=== PATIENT | male | born 1945 | race African-American/Black ===

== ENCOUNTER 2016-06-26 09:18 | Outpatient (CLI) | payer MEDICARE ==
[2016-06-26 09:48] LABS: INR-International Normal Ratio 2.8
== END 2016-06-26 09:19 | disposition home or self-care (01) ==
LOC: MADLAB 09:18
PROVIDERS: ATTEND Family Medicine
DX: Z51.81 Encounter for therapeutic drug level monitoring (principal); I48.2 Chronic atrial fibrillation; Z79.01 Long term (current) use of anticoagulants
CPT/HCPCS: 36415; 85610

== ENCOUNTER 2016-07-31 10:11 | Outpatient (CLI) | payer MEDICARE ==
[2016-07-31 10:45] LABS: INR-International Normal Ratio 2.2; Prothrombin Time 24.5 SEC (12.0-14.7)
== END 2016-07-31 10:12 | disposition home or self-care (01) ==
LOC: MADLABBHPM 10:11
PROVIDERS: ATTEND Family Medicine
DX: Z51.81 Encounter for therapeutic drug level monitoring (principal); Z79.01 Long term (current) use of anticoagulants
CPT/HCPCS: 36415; 85610

== ENCOUNTER 2016-08-29 09:41 | Outpatient (CLI) | payer MEDICARE ==
[2016-08-29 10:19] LABS: INR-International Normal Ratio 2.1; Prothrombin Time 23.7 SEC (12.0-14.7)
== END 2016-08-29 09:42 | disposition home or self-care (01) ==
LOC: MADLAB 09:41
PROVIDERS: ATTEND Family Medicine
DX: Z51.81 Encounter for therapeutic drug level monitoring (principal); Z79.01 Long term (current) use of anticoagulants
CPT/HCPCS: 36415; 85610

== ENCOUNTER 2016-09-26 10:55 | Outpatient (CLI) | payer MEDICARE ==
[2016-09-26 11:21] LABS: INR-International Normal Ratio 2.5; Prothrombin Time 26.5 SEC (12.0-14.7)
== END 2016-09-26 10:56 | disposition home or self-care (01) ==
LOC: MADLABBHPM 10:55
PROVIDERS: ATTEND Family Medicine
DX: Z51.81 Encounter for therapeutic drug level monitoring (principal); Z79.01 Long term (current) use of anticoagulants
CPT/HCPCS: 36415; 85610

== ENCOUNTER 2016-10-30 08:17 | Outpatient (CLI) | payer MEDICARE ==
[2016-10-30 09:13] LABS: INR-International Normal Ratio 2.6; Prothrombin Time 27.5 SEC (12.0-14.7)
== END 2016-10-30 08:18 | disposition home or self-care (01) ==
LOC: MADLABBHPM 08:17
PROVIDERS: ATTEND Family Medicine
DX: Z51.81 Encounter for therapeutic drug level monitoring (principal); Z79.01 Long term (current) use of anticoagulants
CPT/HCPCS: 36415; 85610

== ENCOUNTER 2016-11-23 09:30 | Outpatient (CLI) | payer MEDICARE ==
[2016-11-23 09:56] LABS: INR-International Normal Ratio 1.9; Prothrombin Time 21.4 SEC (12.0-14.7)
== END 2016-11-23 09:31 | disposition home or self-care (01) ==
LOC: MADLABBHPM 09:30
PROVIDERS: ATTEND Family Medicine
DX: Z51.81 Encounter for therapeutic drug level monitoring (principal); Z79.01 Long term (current) use of anticoagulants
CPT/HCPCS: 36415; 85610

== ENCOUNTER 2017-01-17 13:29 | Emergency (ER) | payer MEDICARE ==
[2017-01-17] MEDS ORDERED: HYDROcodone/Acetaminophen 10/325 mg Tablet ONE (13:50)
[2017-01-17] MEDS ORDERED: Cyclobenzaprine 10 MG TAB ONE (13:51)
== END 2017-01-17 13:55 | disposition home or self-care (01) ==
LOC: MADERS 13:29
DX: M62.830 Muscle spasm of back (principal)
CPT/HCPCS: 99283

== ENCOUNTER 2017-01-18 11:35 | Outpatient (CLI) | payer MEDICARE, MEDICAID ==
[2017-01-18 12:30] LABS: Digoxin 0.23 ng/mL (0.8-2.0)
[2017-01-18 12:57] LABS: Prothrombin Time 22.9 SEC (12.0-14.7)
== END 2017-01-18 11:36 | disposition home or self-care (01) ==
LOC: MADLABBHPM 11:35
PROVIDERS: ATTEND Family Medicine
DX: D64.9 Anemia, unspecified (principal); I48.2 Chronic atrial fibrillation; Z79.01 Long term (current) use of anticoagulants
CPT/HCPCS: 36415; 80162; 82728; 83540; 85610

== ENCOUNTER 2017-01-29 09:44 | Outpatient (CLI) | payer MEDICARE, MEDICAID ==
[2017-01-29 10:54] LABS: INR-International Normal Ratio 1.9; Prothrombin Time 22.3 SEC (12.0-14.7)
[2017-01-29 11:03] LABS: #Basophils 0.1 thou/uL (0.0-0.2); #Eosinphils 0.1 thou/uL (0.0-0.7); #Lymphocytes 2.1 thou/uL (1.20-3.40); #Monocytes 0.5 thou/uL (0.11-0.59); %Basophils 1.4 % (0.0-1.0); %Eosinophils 1.7 % (0.0-10.0); %Lymphocytes 27.2 % (21.0-51.0); %Monocytes 6.7 % (0.0-10.0); Mean Corpuscular HGB CONC 32.2 g/dL (32.0-36.0); Mean Corpuscular Hemoglobin 29.2 pg (27.0-31.0); Mean Corpuscular Volume 90.6 fl (80.0-94.0); Mean Platelet Volume 6.4 fL (7.4-10.4); Platelet Count 321 thou/uL (130-400); RBC Distribution Width 11.7 % (11.5-14.5); Red Blood Cell (RBC) Count 3.78 mill/uL (4.70-6.10); White Blood Cell (WBC) Count 7.9 thou/uL (4.8-10.8)
[2017-01-29 11:08] LABS: ALT (SGPT) 11 U/L (8-55); AST (SGOT) 14 U/L (5-34); Albumin 3.6 g/dL (3.4-4.8); Alkaline Phosphatase 62 U/L (40-150); Anion Gap 12 mmol/L (10-20); BUN (Urea Nitrogen) 16 mg/dL (8.4-25.7); Bilirubin, Total 0.4 mg/dL (0.2-1.2); Calc. Creatinine Clearance 0 mL/min (70-130); Calcium 9.4 mg/dL (7.8-10.44); Carbon Dioxide 29 mmol/L (23-31); Chloride 102 mmol/L (98-107); Estimated GFR-MDRD 90; Globulin 3.5 g/dL (2.4-3.5); Glucose 82 mg/dL (83-110); Potassium 3.6 mmol/L (3.5-5.1); Protein, Total 7.1 g/dL (5.8-8.1); Sodium 139 mmol/L (136-145); Uric Acid 4.2 mg/dL (3.5-7.2)
[2017-01-29 16:57] LABS: Iron 67 ug/dL (65-175)
== END 2017-01-29 09:45 ==
LOC: MADLABBHPM 09:44
PROVIDERS: ATTEND Family Medicine
DX: D50.9 Iron deficiency anemia, unspecified (principal); M10.9 Gout, unspecified
CPT/HCPCS: 36415; 80053; 82728; 83540; 84550; 85025; 85610

== ENCOUNTER 2017-01-30 10:37 | Outpatient (CLI) | payer MEDICARE, MEDICAID ==
[2017-01-30 12:33] LABS: PSA-Asymptomatic (SCREENING) 0.64 ng/mL (0-4.0)
[2017-01-30 17:17] LABS: HBSAB Concentration 0.65 mIU/mL; Hep B Core Total Ab Non-Reactive (NonReactive); Hep B Core Total Index 0.09 S/CO (0-0.79); Hep B Surf AB Non-Reactive (NonReactive); Hep B Surf Ag Non-Reactive S/CO (NonReactive)
== END 2017-01-30 10:38 | disposition home or self-care (01) ==
LOC: MADLABBHPM 10:37
PROVIDERS: ATTEND Family Medicine
DX: Z00.01 Encounter for general adult medical examination with abnormal findings (principal)
CPT/HCPCS: 36415; 86704; 86706; 87340; G0103

== ENCOUNTER 2017-01-31 09:32 | Outpatient (CLI) | payer MEDICARE, MEDICAID ==
--- NOTE | 2017-01-31 12:18 | ULT ---
ABDOMINAL AORTIC ULTRASOUND: History: Possible aortic aneurysm. FINDINGS: Large body habitus limits exam. Bowel gas also limits the study. The proximal aorta is identified and has a diameter measured at approximately 2.0 cm. The mid abdomi nal aorta is identified with diameter measured at 2.0 cm. The inferior aorta diameter measured at 1. 7 cm. IMPRESSION: Unremarkable abdominal aortic ultrasound. No evidence of aortic aneurysm. POS: [facility]
== END 2017-01-31 09:33 | disposition home or self-care (01) ==
LOC: MADULT 09:32
PROVIDERS: ATTEND Family Medicine
DX: Z00.01 Encounter for general adult medical examination with abnormal findings (principal); Z79.01 Long term (current) use of anticoagulants
CPT/HCPCS: 76775

== ENCOUNTER 2017-05-02 11:35 | Outpatient (CLI) | payer MEDICARE, MEDICAID ==
[2017-05-02 12:30] LABS: INR-International Normal Ratio 2.1; Prothrombin Time 23.9 SEC (12.0-14.7)
== END 2017-05-02 11:36 | disposition home or self-care (01) ==
LOC: MADLABBHPM 11:35
PROVIDERS: ATTEND Family Medicine
DX: Z51.81 Encounter for therapeutic drug level monitoring (principal); Z79.01 Long term (current) use of anticoagulants
CPT/HCPCS: 36415; 85610

== ENCOUNTER 2017-05-22 10:38 | Outpatient (CLI) | payer MEDICARE, MEDICAID ==
--- NOTE | 2017-05-22 14:32 | RAD ---
TWO VIEWS LEFT HIP: History: Chronic pain. Comparison: None. FINDINGS: Mild loss of joint space height. Contour of the femoral head is maintained. No fracture. IMPRESSION: Mild loss of joint space height. No fracture. POS: [facility]
--- NOTE | 2017-05-22 14:33 | RAD ---
AP PELVIS: Date: 05-22-17 History: Chronic left hip pain. FINDINGS: No fracture or dislocation is seen. 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 The hips are overa ll symmetric in appearance bilaterally. No lytic or sclerotic osseous lesions are seen. IMPRESSION: No acute osseous abnormality. POS: [facility]
== END 2017-05-22 10:39 | disposition home or self-care (01) ==
LOC: MADRAD 10:38
PROVIDERS: ATTEND Family Medicine
DX: M25.552 Pain in left hip (principal); Z79.01 Long term (current) use of anticoagulants
CPT/HCPCS: 72170

== ENCOUNTER 2017-05-25 12:07 | Emergency (ER) | payer MEDICARE, MEDICAID ==
[2017-05-25 13:00] LABS: #Basophils 0.1 thou/uL (0.0-0.2); #Eosinphils 0.1 thou/uL (0.0-0.7); #Monocytes 0.6 thou/uL (0.11-0.59); #Neutrophils 5.9 thou/uL (1.40-6.50); %Basophils 1.2 % (0.0-1.0); %Eosinophils 0.9 % (0.0-10.0); %Lymphocytes 22.7 % (21.0-51.0); %Monocytes 6.4 % (0.0-10.0); %Neutrophils 68.7 % (42.0-75.0); Hemoglobin 11.3 g/dL (14.0-18.0); Mean Corpuscular HGB CONC 33.7 g/dL (32.0-36.0); Mean Corpuscular Hemoglobin 30.3 pg (27.0-31.0); Mean Platelet Volume 6.3 fL (7.4-10.4); Platelet Count 336 thou/uL (130-400); RBC Distribution Width 11.4 % (11.5-14.5); Red Blood Cell (RBC) Count 3.72 mill/uL (4.70-6.10); White Blood Cell (WBC) Count 8.6 thou/uL (4.8-10.8)
[2017-05-25 13:04] LABS: INR-International Normal Ratio 2.7; Prothrombin Time 29.7 SEC (12.0-14.7)
[2017-05-25 13:05] LABS: PTT 62.8 SEC (22.9-36.1)
[2017-05-25 13:18] LABS: Anion Gap 15 mmol/L (10-20); BUN (Urea Nitrogen) 20 mg/dL (8.4-25.7); Calc. Creatinine Clearance 0 mL/min (70-130); Calcium 9.1 mg/dL (7.8-10.44); Carbon Dioxide 26 mmol/L (23-31); Chloride 101 mmol/L (98-107); Estimated GFR-MDRD 90; Glucose 90 mg/dL (83-110); Sodium 138 mmol/L (136-145)
[2017-05-25 13:24] LABS: CKMB 4.9 ng/mL (0-6.6); Troponin I 0.117 ng/mL (< 0.028)
[2017-05-25 13:26] LABS: Digoxin 0.46 ng/mL (0.8-2.0)
--- NOTE | 2017-05-25 14:32 | RAD ---
CHEST 1 VIEW: HISTORY: Chest pain. COMPARISON: Chest 1 view 06/29/13. FINDINGS: Lungs are severely hypoinflated. Central position of the bowel to the left hemidiaphragm and the spl een. No pneumothorax. IMPRESSION: Severe lung hypoinflation. No focal airspace consolidation, though a followup 2 views of the chest m ay be beneficial in this patient. No significant change from 2014. POS: [facility]
== END 2017-05-25 13:55 | disposition home or self-care (01) ==
LOC: MADERS 12:07
DX: R00.1 Bradycardia, unspecified (principal); R60.0 Localized edema; I25.2 Old myocardial infarction; I48.91 Unspecified atrial fibrillation; E03.9 Hypothyroidism, unspecified; I10 Essential (primary) hypertension; Z79.01 Long term (current) use of anticoagulants; Z79.899 Other long term (current) drug therapy
CPT/HCPCS: 71010; 80048; 80162; 82553; 83880; 84484; 85025; 85610; 85730; 93005

== ENCOUNTER 2017-05-29 09:00 | Outpatient (CLI) | payer MEDICARE, MEDICAID ==
[2017-05-29 09:37] LABS: INR-International Normal Ratio 1.8; Prothrombin Time 21.7 SEC (12.0-14.7)
[2017-05-29 09:47] LABS: ALT (SGPT) Less than 6 U/L (8-55); AST (SGOT) 13 U/L (5-34); Albumin 3.7 g/dL (3.4-4.8); Alkaline Phosphatase 75 U/L (40-150); Anion Gap 15 mmol/L (10-20); BUN (Urea Nitrogen) 16 mg/dL (8.4-25.7); Bilirubin, Total 0.6 mg/dL (0.2-1.2); Calc. Creatinine Clearance 0 mL/min (70-130); Calcium 9.6 mg/dL (7.8-10.44); Carbon Dioxide 29 mmol/L (23-31); Chloride 101 mmol/L (98-107); Estimated GFR-MDRD 73; Globulin 3.6 g/dL (2.4-3.5); Glucose 92 mg/dL (83-110); Potassium 3.6 mmol/L (3.5-5.1); Protein, Total 7.3 g/dL (5.8-8.1); Sodium 141 mmol/L (136-145)
== END 2017-05-29 09:01 | disposition home or self-care (01) ==
LOC: MADLAB 09:00
PROVIDERS: ATTEND Internal Medicine Cardiovascular Disease
DX: I10 Essential (primary) hypertension (principal); Z79.01 Long term (current) use of anticoagulants
CPT/HCPCS: 36415; 80053; 85610

== ENCOUNTER 2017-07-02 07:53 | Outpatient (CLI) | payer MEDICARE, MEDICAID ==
[2017-07-02 08:42] LABS: INR-International Normal Ratio 2.4; Prothrombin Time 27.2 SEC (12.0-14.7)
== END 2017-07-02 07:54 | disposition home or self-care (01) ==
LOC: MADLABBHPM 07:53
PROVIDERS: ATTEND Family Medicine
DX: Z51.81 Encounter for therapeutic drug level monitoring (principal); Z79.01 Long term (current) use of anticoagulants
CPT/HCPCS: 36415; 85610

== ENCOUNTER 2017-07-31 09:48 | Outpatient (CLI) | payer MEDICARE ==
[2017-07-31 10:32] LABS: #Basophils 0.1 thou/uL (0.0-0.2); #Eosinphils 0.1 thou/uL (0.0-0.7); #Lymphocytes 2.4 thou/uL (1.20-3.40); #Monocytes 0.6 thou/uL (0.11-0.59); %Basophils 1.7 % (0.0-1.0); %Eosinophils 1.4 % (0.0-10.0); %Lymphocytes 29.1 % (21.0-51.0); %Neutrophils 60.8 % (42.0-75.0); Hemoglobin 11.1 g/dL (14.0-18.0); Mean Corpuscular HGB CONC 31.6 g/dL (32.0-36.0); Mean Corpuscular Hemoglobin 29.1 pg (27.0-31.0); Mean Platelet Volume 6.3 fL (7.4-10.4); Platelet Count 299 thou/uL (130-400); RBC Distribution Width 12.1 % (11.5-14.5); Red Blood Cell (RBC) Count 3.82 mill/uL (4.70-6.10); White Blood Cell (WBC) Count 8.3 thou/uL (4.8-10.8)
[2017-07-31 10:48] LABS: INR-International Normal Ratio 2.6; Prothrombin Time 28.6 SEC (12.0-14.7)
[2017-07-31 10:58] LABS: ALT (SGPT) 8 U/L (8-55); AST (SGOT) 13 U/L (5-34); Albumin 3.5 g/dL (3.4-4.8); Alkaline Phosphatase 61 U/L (40-150); Anion Gap 12 mmol/L (10-20); BUN (Urea Nitrogen) 15 mg/dL (8.4-25.7); Bilirubin, Total 0.5 mg/dL (0.2-1.2); Calc. Creatinine Clearance 0 mL/min (70-130); Calcium 9.1 mg/dL (7.8-10.44); Carbon Dioxide 29 mmol/L (23-31); Cardiac Risk 3.2 (Less than 4.5); Chloride 104 mmol/L (98-107); Cholesterol 142 mg/dl (< 200 Desired); Estimated GFR-MDRD Greater than 90; Globulin 3.2 g/dL (2.4-3.5); Glucose 88 mg/dL (83-110); HDL Cholesterol 45 mg/dL (>60 Neg Risk); LDL Cholesterol, Calculated 86 mg/dL; Potassium 3.7 mmol/L (3.5-5.1); Protein, Total 6.7 g/dL (5.8-8.1); Sodium 141 mmol/L (136-145); Triglycerides 53 mg/dL (Less than 150); Uric Acid 4.2 mg/dL (3.5-7.2)
[2017-07-31 17:10] LABS: Iron 70 ug/dL (65-175)
[2017-07-31 17:14] LABS: Ferritin 93.42 ng/mL (22-322)
== END 2017-07-31 09:49 | disposition home or self-care (01) ==
LOC: MADLABBHPM 09:48
PROVIDERS: ATTEND Family Medicine
DX: E03.9 Hypothyroidism, unspecified (principal); E78.5 Hyperlipidemia, unspecified; D50.9 Iron deficiency anemia, unspecified; M10.9 Gout, unspecified
CPT/HCPCS: 36415; 80053; 80061; 82728; 83036; 83540; 84443; 84550; 85025; 85610

== ENCOUNTER 2017-08-28 09:36 | Outpatient (CLI) | payer MEDICARE ==
[2017-08-28 10:47] LABS: Prothrombin Time 23.7 SEC (12.0-14.7)
== END 2017-08-28 09:37 | disposition home or self-care (01) ==
LOC: MADLABBHPM 09:36
PROVIDERS: ATTEND Family Medicine
DX: Z51.81 Encounter for therapeutic drug level monitoring (principal); Z79.01 Long term (current) use of anticoagulants
CPT/HCPCS: 36415; 85610

== ENCOUNTER 2017-09-29 10:33 | Emergency (ER) | payer MEDICARE, MEDICAID ==
[2017-09-29] MEDS ORDERED: Diazepam 5 MG TAB ONE (10:56)
[2017-09-29] MEDS ORDERED: HYDROcodone/Acetaminophen 10/325 mg Tablet ONE (10:56)
--- NOTE | 2017-09-29 12:31 | RAD ---
LUMBAR SPINE 3 VIEWS: Date: 09/29/17 HISTORY: Back pain. FINDINGS: There are five lumbar-type vertebrae. Pedicles are intact. There is mild depression of the central as pect of the L2 superior end plate. Other vertebral body heights are maintained. Moderate osteophytosi s throughout the vertebral bodies and facets. Disc space narrowing at the L3-4 level. Minimal degener ative spondylolisthesis at the L3-4 and L4-5 levels. IMPRESSION: 1. Mild L2 superior end place compression, age-indeterminate. 2. Lumbar spondylosis. POS: [facility]
== END 2017-09-29 11:40 | disposition home or self-care (01) ==
LOC: MADERS 10:33
DX: M54.5 Low back pain (principal); I10 Essential (primary) hypertension; I48.91 Unspecified atrial fibrillation; E03.9 Hypothyroidism, unspecified; Z79.01 Long term (current) use of anticoagulants; Z79.891 Long term (current) use of opiate analgesic; Z79.899 Other long term (current) drug therapy; X50.1XXA Overexertion from prolonged static or awkward postures, initial encounter
CPT/HCPCS: 72100

== ENCOUNTER 2017-10-05 08:37 | Outpatient (CLI) | payer MEDICARE ==
[2017-10-05 09:01] LABS: INR-International Normal Ratio 2.6; Prothrombin Time 29.1 SEC (12.0-14.7)
== END 2017-10-05 08:38 | disposition home or self-care (01) ==
LOC: MADLABBHPM 08:37
PROVIDERS: ATTEND Family Medicine
DX: Z51.81 Encounter for therapeutic drug level monitoring (principal); Z79.01 Long term (current) use of anticoagulants
CPT/HCPCS: 36415; 85610

== ENCOUNTER 2017-10-30 09:35 | Outpatient (CLI) | payer MEDICARE ==
[2017-10-30 10:57] LABS: INR-International Normal Ratio 2.7
== END 2017-10-30 09:36 | disposition home or self-care (01) ==
LOC: MADLABBHPM 09:35
PROVIDERS: ATTEND Family Medicine
DX: Z51.81 Encounter for therapeutic drug level monitoring (principal); Z79.01 Long term (current) use of anticoagulants
CPT/HCPCS: 36415; 85610

== ENCOUNTER 2017-11-28 07:35 | Outpatient (CLI) | payer MEDICARE, MEDICAID ==
[2017-11-28 08:01] LABS: INR-International Normal Ratio 2.3; Prothrombin Time 26.4 SEC (12.0-14.7)
== END 2017-11-28 07:36 | disposition home or self-care (01) ==
LOC: MADLABBHPM 07:35
PROVIDERS: ATTEND Family Medicine
DX: Z51.81 Encounter for therapeutic drug level monitoring (principal); Z79.01 Long term (current) use of anticoagulants
CPT/HCPCS: 36415; 85610

== ENCOUNTER 2017-12-24 09:30 | Outpatient (CLI) | payer MEDICARE, MEDICAID ==
[2017-12-24 09:55] LABS: INR-International Normal Ratio 2.3; Prothrombin Time 25.7 SEC (12.0-14.7)
== END 2017-12-24 09:31 | disposition home or self-care (01) ==
LOC: MADLAB 09:30
PROVIDERS: ATTEND Family Medicine
DX: Z51.81 Encounter for therapeutic drug level monitoring (principal); Z79.01 Long term (current) use of anticoagulants
CPT/HCPCS: 36415; 85610

== ENCOUNTER 2018-01-02 12:34 | Outpatient (CLI) | payer MEDICARE, MEDICAID ==
[2018-01-02 12:57] LABS: INR-International Normal Ratio 2.6; Prothrombin Time 28.2 SEC (12.0-14.7)
== END 2018-01-02 12:35 | disposition home or self-care (01) ==
LOC: MADLAB 12:34
PROVIDERS: ATTEND Family Medicine
DX: Z51.81 Encounter for therapeutic drug level monitoring (principal); Z79.01 Long term (current) use of anticoagulants
CPT/HCPCS: 36415; 85610

== ENCOUNTER 2018-03-14 09:21 | Outpatient (CLI) | payer MEDICARE, MEDICAID ==
[2018-03-14 11:48] LABS: INR-International Normal Ratio 1.8; Prothrombin Time 20.9 SEC (12.0-14.7)
== END 2018-03-14 09:22 | disposition home or self-care (01) ==
LOC: MADLABBHPM 09:21
PROVIDERS: ATTEND Family Medicine
DX: Z51.81 Encounter for therapeutic drug level monitoring (principal); Z79.01 Long term (current) use of anticoagulants
CPT/HCPCS: 36415; 85610

== ENCOUNTER 2018-04-05 09:45 | Outpatient (CLI) | payer MEDICARE, MEDICAID ==
[2018-04-06 17:01] LABS: Prothrombin Time 22.6 SEC (12.0-14.7)
== END 2018-04-05 09:46 | disposition home or self-care (01) ==
LOC: MADLAB 09:45
PROVIDERS: ATTEND Family Medicine
DX: Z51.81 Encounter for therapeutic drug level monitoring (principal); Z79.01 Long term (current) use of anticoagulants
CPT/HCPCS: 36415; 85610

== ENCOUNTER 2018-05-08 08:23 | Outpatient (CLI) | payer MEDICARE, MEDICAID ==
[2018-05-08 09:57] LABS: Prothrombin Time 22.8 SEC (12.0-14.7)
== END 2018-05-08 08:24 | disposition home or self-care (01) ==
LOC: MADLABBHPM 08:23
PROVIDERS: ATTEND Family Medicine
DX: Z51.81 Encounter for therapeutic drug level monitoring (principal); Z79.01 Long term (current) use of anticoagulants
CPT/HCPCS: 36415; 85610

== ENCOUNTER 2018-06-13 09:43 | Outpatient (CLI) | payer MEDICARE, MEDICAID ==
[2018-06-13 10:20] LABS: INR-International Normal Ratio 1.4; Prothrombin Time 16.8 SEC (12.0-14.7)
== END 2018-06-13 09:44 | disposition home or self-care (01) ==
LOC: MADLABBHPM 09:43
PROVIDERS: ATTEND Family Medicine
DX: Z51.81 Encounter for therapeutic drug level monitoring (principal); Z79.01 Long term (current) use of anticoagulants
CPT/HCPCS: 36415; 85610

== ENCOUNTER 2018-06-20 08:55 | Outpatient (CLI) | payer MEDICARE, MEDICAID ==
[2018-06-20 09:48] LABS: INR-International Normal Ratio 1.8; Prothrombin Time 20.8 SEC (12.0-14.7)
== END 2018-06-20 08:56 | disposition home or self-care (01) ==
LOC: MADLABBHPM 08:55
PROVIDERS: ATTEND Family Medicine
DX: Z51.81 Encounter for therapeutic drug level monitoring (principal); Z79.01 Long term (current) use of anticoagulants
CPT/HCPCS: 36415; 85610

== ENCOUNTER 2018-07-15 10:08 | Outpatient (CLI) | payer MEDICARE, MEDICAID ==
[2018-07-15 11:02] LABS: INR-International Normal Ratio 2.1; Prothrombin Time 23.2 SEC (12.0-14.7)
== END 2018-07-15 10:09 | disposition home or self-care (01) ==
LOC: MADLABBHPM 10:08
PROVIDERS: ATTEND Family Medicine
DX: Z51.81 Encounter for therapeutic drug level monitoring (principal); Z79.01 Long term (current) use of anticoagulants
CPT/HCPCS: 36415; 85610

== ENCOUNTER 2018-07-29 09:48 | Outpatient (CLI) | payer MEDICARE, MEDICAID ==
[2018-07-29 10:53] LABS: Prothrombin Time 22.9 SEC (12.0-14.7)
[2018-07-29 11:06] LABS: ALT (SGPT) 10 U/L (8-55); AST (SGOT) 13 U/L (5-34); Albumin 3.8 g/dL (3.4-4.8); Alkaline Phosphatase 78 U/L (40-150); Anion Gap 12 mmol/L (10-20); BUN (Urea Nitrogen) 14 mg/dL (8.4-25.7); Bilirubin, Total 0.5 mg/dL (0.2-1.2); Calc. Creatinine Clearance 0 mL/min (70-130); Calcium 9.5 mg/dL (7.8-10.44); Carbon Dioxide 29 mmol/L (23-31); Chloride 104 mmol/L (98-107); Estimated GFR-MDRD 77; Globulin 3.2 g/dL (2.4-3.5); Glucose 81 mg/dL (83-110); Potassium 3.8 mmol/L (3.5-5.1); Sodium 141 mmol/L (136-145); Uric Acid 5.7 mg/dL (3.5-7.2)
[2018-07-29 11:09] LABS: #Basophils 0.1 thou/uL (0.0-0.2); #Eosinphils 0.2 thou/uL (0.0-0.7); #Lymphocytes 1.8 thou/uL (1.20-3.40); #Monocytes 0.4 thou/uL (0.11-0.59); #Neutrophils 4.7 thou/uL (1.40-6.50); %Basophils 1.6 % (0.0-1.0); %Eosinophils 2.2 % (0.0-10.0); %Lymphocytes 25.4 % (21.0-51.0); %Monocytes 6.1 % (0.0-10.0); %Neutrophils 64.7 % (42.0-75.0); Hemoglobin 11.7 g/dL (14.0-18.0); Mean Corpuscular HGB CONC 31.9 g/dL (32.0-36.0); Mean Corpuscular Hemoglobin 28.6 pg (27.0-31.0); Mean Corpuscular Volume 89.6 fL (78.0-98.0); Mean Platelet Volume 6.7 fL (7.4-10.4); Platelet Count 264 thou/uL (130-400); White Blood Cell (WBC) Count 7.2 thou/uL (4.8-10.8)
[2018-07-29 17:13] LABS: Iron 78 ug/dL (65-175)
== END 2018-07-29 09:49 ==
LOC: MADLABBHPM 09:48
PROVIDERS: ATTEND Family Medicine
DX: D50.9 Iron deficiency anemia, unspecified (principal); M10.9 Gout, unspecified; I10 Essential (primary) hypertension
CPT/HCPCS: 36415; 80053; 82728; 83540; 84550; 85025; 85610

== ENCOUNTER 2018-08-12 13:53 | Emergency (ER) | payer MEDICARE, MEDICAID ==
[2018-08-12 14:34] LABS: #Basophils 0.1 thou/uL (0.0-0.2); #Eosinphils 0.7 thou/uL (0.0-0.7); #Lymphocytes 2.3 thou/uL (1.20-3.40); #Monocytes 0.6 thou/uL (0.11-0.59); #Neutrophils 5.2 thou/uL (1.40-6.50); %Basophils 1.1 % (0.0-1.0); %Monocytes 6.2 % (0.0-10.0); %Neutrophils 58.7 % (42.0-75.0); Mean Corpuscular HGB CONC 31.4 g/dL (32.0-36.0); Mean Corpuscular Hemoglobin 28.3 pg (27.0-31.0); Mean Corpuscular Volume 90.2 fL (78.0-98.0); Mean Platelet Volume 6.1 fL (7.4-10.4); Platelet Count 276 thou/uL (130-400); RBC Distribution Width 11.9 % (11.5-14.5); Red Blood Cell (RBC) Count 4.24 mill/uL (4.70-6.10); White Blood Cell (WBC) Count 8.9 thou/uL (4.8-10.8)
[2018-08-12 14:44] LABS: INR-International Normal Ratio 2.5; PTT 39.9 SEC (22.9-36.1); Prothrombin Time 27.4 SEC (12.0-14.7)
[2018-08-12 14:52] LABS: ALT (SGPT) 7 U/L (8-55); AST (SGOT) 11 U/L (5-34); Albumin 3.7 g/dL (3.4-4.8); Alkaline Phosphatase 78 U/L (40-150); Anion Gap 15 mmol/L (10-20); BUN (Urea Nitrogen) 14 mg/dL (8.4-25.7); Bilirubin, Total 0.4 mg/dL (0.2-1.2); Calc. Creatinine Clearance 0 mL/min (70-130); Calcium 9.4 mg/dL (7.8-10.44); Carbon Dioxide 26 mmol/L (23-31); Chloride 102 mmol/L (98-107); Estimated GFR-MDRD 82; Globulin 3.2 g/dL (2.4-3.5); Glucose 138 mg/dL (83-110); Potassium 3.6 mmol/L (3.5-5.1); Protein, Total 6.9 g/dL (5.8-8.1); Sodium 139 mmol/L (136-145)
[2018-08-12 14:55] LABS: Bilirubin Negative (Negative); Blood, Urine Negative (Negative); Clarity Clear (Clear); Glucose, Urine (Dipstick) Negative (Negative); Leukocyte Negative (Negative); Nitrite Negative (Negative); Protein, Urine (Dipstick) Negative (Neg-Trace); Urobilinogen 0.2 mg/dL (0.2-1.0); pH, Urine 5.5 (5.0-9.0)
--- NOTE | 2018-08-12 15:04 | RAD ---
CHEST PA AND LATERAL 2 VIEWS: HISTORY: Altered mental status. COMPARISON: 05/25/2017. FINDINGS: Poor inspiration. Minimal increased markings in the bases. No confluent pneumonia, overt edema, or pleural effusion. IMPRESSION: No acute intrathoracic disease. Stable from prior study. POS: [facility]
== END 2018-08-12 16:15 | disposition home or self-care (01) ==
LOC: MADERS 13:53
DX: R42 Dizziness and giddiness (principal); I25.2 Old myocardial infarction; I48.91 Unspecified atrial fibrillation; E03.9 Hypothyroidism, unspecified; I10 Essential (primary) hypertension; Z79.899 Other long term (current) drug therapy; Z79.01 Long term (current) use of anticoagulants
CPT/HCPCS: 71046; 80053; 81003; 83605; 84443; 84484; 85025; 85610; 85730; 93005; 94760

== ENCOUNTER 2018-08-26 08:39 | Outpatient (CLI) | payer MEDICARE, MEDICAID ==
[2018-08-26 10:00] LABS: INR-International Normal Ratio 2.1; Prothrombin Time 23.5 SEC (12.0-14.7)
== END 2018-08-26 08:40 | disposition home or self-care (01) ==
LOC: MADLABBHPM 08:39
PROVIDERS: ATTEND Family Medicine
DX: Z51.81 Encounter for therapeutic drug level monitoring (principal); Z79.01 Long term (current) use of anticoagulants
CPT/HCPCS: 36415; 85610

== ENCOUNTER 2018-09-09 09:05 | Outpatient (CLI) | payer MEDICARE, MEDICAID ==
[2018-09-09 09:36] LABS: INR-International Normal Ratio 1.8; Prothrombin Time 21.3 SEC (12.0-14.7)
== END 2018-09-09 09:06 | disposition home or self-care (01) ==
LOC: MADLABBHPM 09:05
PROVIDERS: ATTEND Family Medicine
DX: Z51.81 Encounter for therapeutic drug level monitoring (principal); Z79.01 Long term (current) use of anticoagulants
CPT/HCPCS: 36415; 85610

== ENCOUNTER 2018-10-07 09:07 | Outpatient (CLI) | payer MEDICARE, MEDICAID ==
[2018-10-07 09:53] LABS: INR-International Normal Ratio 2.3; Prothrombin Time 25.4 SEC (12.0-14.7)
== END 2018-10-07 09:08 | disposition home or self-care (01) ==
LOC: MADLABBHPM 09:07
PROVIDERS: ATTEND Family Medicine
DX: Z51.81 Encounter for therapeutic drug level monitoring (principal); Z79.01 Long term (current) use of anticoagulants
CPT/HCPCS: 36415; 85610

== ENCOUNTER 2018-11-04 10:02 | Outpatient (CLI) | payer MEDICARE, MEDICAID ==
[2018-11-04 10:41] LABS: #Basophils 0.1 thou/uL (0.0-0.2); #Eosinphils 0.9 thou/uL (0.0-0.7); #Lymphocytes 1.6 thou/uL (1.20-3.40); #Monocytes 0.5 thou/uL (0.11-0.59); #Neutrophils 5.2 thou/uL (1.40-6.50); %Basophils 1.4 % (0.0-1.0); %Eosinophils 10.3 % (0.0-10.0); %Lymphocytes 19.8 % (21.0-51.0); %Monocytes 6.2 % (0.0-10.0); %Neutrophils 62.4 % (42.0-75.0); Hemoglobin 10.5 g/dL (14.0-18.0); Mean Corpuscular HGB CONC 31.7 g/dL (32.0-36.0); Mean Corpuscular Hemoglobin 28.6 pg (27.0-31.0); Mean Corpuscular Volume 90.1 fL (78.0-98.0); Mean Platelet Volume 6.2 fL (7.4-10.4); Platelet Count 265 thou/uL (130-400); RBC Distribution Width 11.8 % (11.5-14.5); Red Blood Cell (RBC) Count 3.67 mill/uL (4.70-6.10); White Blood Cell (WBC) Count 8.3 thou/uL (4.8-10.8)
[2018-11-04 10:48] LABS: INR-International Normal Ratio 2.3; Prothrombin Time 25.2 SEC (12.0-14.7)
[2018-11-04 10:53] LABS: ALT (SGPT) Less than 7 U/L (8-55); AST (SGOT) 10 U/L (5-34); Albumin 3.7 g/dL (3.4-4.8); Alkaline Phosphatase 78 U/L (40-150); Anion Gap 12 mmol/L (10-20); BUN (Urea Nitrogen) 11 mg/dL (8.4-25.7); Bilirubin, Total 0.5 mg/dL (0.2-1.2); Calc. Creatinine Clearance 0 mL/min (70-130); Calcium 9.2 mg/dL (7.8-10.44); Carbon Dioxide 28 mmol/L (23-31); Chloride 104 mmol/L (98-107); Cholesterol 125 mg/dl (< 200 Desired); Estimated GFR-MDRD 87; Glucose 83 mg/dL (83-110); HDL Cholesterol 41 mg/dL (>60 Neg Risk); LDL Cholesterol, Calculated 72 mg/dL; Potassium 3.7 mmol/L (3.5-5.1); Protein, Total 6.7 g/dL (5.8-8.1); Sodium 140 mmol/L (136-145); Triglycerides 61 mg/dL (Less than 150); Uric Acid 5.2 mg/dL (3.5-7.2)
[2018-11-04 17:12] LABS: Iron 76 ug/dL (65-175)
== END 2018-11-04 10:03 | disposition home or self-care (01) ==
LOC: MADLABBHPM 10:02
PROVIDERS: ATTEND Family Medicine
DX: D50.9 Iron deficiency anemia, unspecified (principal); E78.5 Hyperlipidemia, unspecified; M10.9 Gout, unspecified; I10 Essential (primary) hypertension
CPT/HCPCS: 36415; 80053; 80061; 82728; 83540; 84550; 85025; 85610

== ENCOUNTER 2018-12-02 10:09 | Outpatient (CLI) | payer MEDICARE, MEDICAID ==
[2018-12-02 10:55] LABS: INR-International Normal Ratio 2.4; Prothrombin Time 26.3 SEC (12.0-14.7)
== END 2018-12-02 10:10 | disposition home or self-care (01) ==
LOC: MADLABBHPM 10:09
PROVIDERS: ATTEND Family Medicine
DX: Z51.81 Encounter for therapeutic drug level monitoring (principal); Z79.01 Long term (current) use of anticoagulants
CPT/HCPCS: 36415; 85610

== ENCOUNTER 2019-01-02 08:51 | Outpatient (CLI) | payer MEDICARE, MEDICAID ==
[2019-01-02 09:22] LABS: ALT (SGPT) 7 U/L (8-55); AST (SGOT) 11 U/L (5-34); Albumin 3.8 g/dL (3.4-4.8); Alkaline Phosphatase 84 U/L (40-150); Anion Gap 12 mmol/L (10-20); BUN (Urea Nitrogen) 16 mg/dL (8.4-25.7); Bilirubin, Total 0.4 mg/dL (0.2-1.2); Calc. Creatinine Clearance 0 mL/min (70-130); Calcium 9.2 mg/dL (7.8-10.44); Carbon Dioxide 29 mmol/L (23-31); Cardiac Risk 3.2 (Less than 4.5); Chloride 103 mmol/L (98-107); Cholesterol 146 mg/dl (< 200 Desired); Estimated GFR-MDRD 72; Globulin 3.2 g/dL (2.4-3.5); Glucose 90 mg/dL (83-110); HDL Cholesterol 45 mg/dL (>60 Neg Risk); LDL Cholesterol, Calculated 89 mg/dL; Potassium 3.8 mmol/L (3.5-5.1); Sodium 140 mmol/L (136-145); Triglycerides 60 mg/dL (Less than 150); Uric Acid 6.3 mg/dL (3.5-7.2)
[2019-01-02 09:30] LABS: #Basophils 0.1 thou/uL (0.0-0.2); #Eosinphils 0.2 thou/uL (0.0-0.7); #Lymphocytes 1.9 thou/uL (1.20-3.40); #Monocytes 0.5 thou/uL (0.11-0.59); %Basophils 1.7 % (0.0-1.0); %Eosinophils 2.7 % (0.0-10.0); %Lymphocytes 24.9 % (21.0-51.0); %Monocytes 6.8 % (0.0-10.0); %Neutrophils 63.9 % (42.0-75.0); Hemoglobin 11.1 g/dL (14.0-18.0); Mean Corpuscular HGB CONC 31.8 g/dL (32.0-36.0); Mean Corpuscular Hemoglobin 28.2 pg (27.0-31.0); Mean Corpuscular Volume 88.8 fL (78.0-98.0); Mean Platelet Volume 5.9 fL (7.4-10.4); Platelet Count 290 thou/uL (130-400); RBC Distribution Width 11.6 % (11.5-14.5); Red Blood Cell (RBC) Count 3.95 mill/uL (4.70-6.10); White Blood Cell (WBC) Count 7.8 thou/uL (4.8-10.8)
[2019-01-02 09:31] LABS: INR-International Normal Ratio 2.4; Prothrombin Time 25.8 SEC (12.0-14.7)
== END 2019-01-02 08:52 | disposition home or self-care (01) ==
LOC: MADLABBHPM 08:51
PROVIDERS: ATTEND Family Medicine
DX: E78.5 Hyperlipidemia, unspecified (principal); E03.9 Hypothyroidism, unspecified; M10.9 Gout, unspecified; K59.09 Other constipation; Z79.01 Long term (current) use of anticoagulants
CPT/HCPCS: 36415; 80053; 80061; 84443; 84550; 85025; 85610

== ENCOUNTER 2019-03-01 08:31 | Outpatient (CLI) | payer MEDICARE, MEDICAID ==
[2019-03-01 09:12] LABS: INR-International Normal Ratio 2.1; Prothrombin Time 23.5 SEC (12.0-14.7)
== END 2019-03-01 08:32 | disposition home or self-care (01) ==
LOC: MADLAB 08:31
PROVIDERS: ATTEND Family Medicine
DX: Z51.81 Encounter for therapeutic drug level monitoring (principal); I48.2 Chronic atrial fibrillation; Z79.01 Long term (current) use of anticoagulants
CPT/HCPCS: 36415; 85610

== ENCOUNTER 2019-03-25 09:42 | Outpatient (CLI) | payer MEDICARE, MEDICAID ==
[2019-03-25 10:17] LABS: INR-International Normal Ratio 1.9; Prothrombin Time 21.6 SEC (12.0-14.7)
== END 2019-03-25 09:43 | disposition home or self-care (01) ==
LOC: MADLABBHPM 09:42
PROVIDERS: ATTEND Family Medicine
DX: Z51.81 Encounter for therapeutic drug level monitoring (principal); I48.20 Chronic atrial fibrillation, unspecified; Z79.01 Long term (current) use of anticoagulants
CPT/HCPCS: 36415; 85610

== ENCOUNTER 2019-04-29 08:58 | Outpatient (CLI) | payer MEDICARE, MEDICAID ==
[2019-04-29 09:27] LABS: INR-International Normal Ratio 1.9; Prothrombin Time 22.1 SEC (12.0-14.7)
== END 2019-04-29 08:59 | disposition home or self-care (01) ==
LOC: MADLABBHPM 08:58
PROVIDERS: ATTEND Family Medicine
DX: Z51.81 Encounter for therapeutic drug level monitoring (principal); I48.20 Chronic atrial fibrillation, unspecified; Z79.01 Long term (current) use of anticoagulants
CPT/HCPCS: 36415; 85610

== ENCOUNTER 2019-05-29 09:48 | Outpatient (CLI) | payer MEDICARE, MEDICAID ==
[2019-05-29 10:13] LABS: INR-International Normal Ratio 1.7; Prothrombin Time 19.5 SEC (12.0-14.7)
== END 2019-05-29 09:49 | disposition home or self-care (01) ==
LOC: MADLABBHPM 09:48
PROVIDERS: ATTEND Family Medicine
DX: Z51.81 Encounter for therapeutic drug level monitoring (principal); I48.20 Chronic atrial fibrillation, unspecified; Z79.01 Long term (current) use of anticoagulants
CPT/HCPCS: 36415; 85610

== ENCOUNTER 2019-06-05 10:22 | Outpatient (CLI) | payer MEDICARE, MEDICAID ==
[2019-06-05 11:01] LABS: INR-International Normal Ratio 1.7; Prothrombin Time 20.3 SEC (12.0-14.7)
== END 2019-06-05 10:23 | disposition home or self-care (01) ==
LOC: MADLABBHPM 10:22
PROVIDERS: ATTEND Family Medicine
DX: Z51.81 Encounter for therapeutic drug level monitoring (principal); I48.20 Chronic atrial fibrillation, unspecified; Z79.01 Long term (current) use of anticoagulants
CPT/HCPCS: 36415; 85610

== ENCOUNTER 2019-06-11 08:53 | Outpatient (CLI) | payer MEDICARE, MEDICAID ==
[2019-06-11 09:12] LABS: INR-International Normal Ratio 2.2; Prothrombin Time 24.5 SEC (12.0-14.7)
== END 2019-06-11 08:54 | disposition home or self-care (01) ==
LOC: MADLABBHPM 08:53
PROVIDERS: ATTEND Family Medicine
DX: Z51.81 Encounter for therapeutic drug level monitoring (principal); I48.20 Chronic atrial fibrillation, unspecified; Z79.01 Long term (current) use of anticoagulants
CPT/HCPCS: 36415; 85610

== ENCOUNTER 2019-06-30 10:39 | Outpatient (CLI) | payer MEDICARE, MEDICAID ==
[2019-06-30 11:01] LABS: INR-International Normal Ratio 2.9; Prothrombin Time 30.2 SEC (12.0-14.7)
== END 2019-06-30 10:40 | disposition home or self-care (01) ==
LOC: MADLABBHPM 10:39
PROVIDERS: ATTEND Family Medicine
DX: Z51.81 Encounter for therapeutic drug level monitoring (principal); I48.20 Chronic atrial fibrillation, unspecified; Z79.01 Long term (current) use of anticoagulants
CPT/HCPCS: 36415; 85610

== ENCOUNTER 2019-07-15 09:34 | Outpatient (CLI) | payer MEDICARE, MEDICAID ==
[2019-07-15 10:04] LABS: INR-International Normal Ratio 2.1
== END 2019-07-15 09:35 | disposition home or self-care (01) ==
LOC: MADLABBHPM 09:34
PROVIDERS: ATTEND Family Medicine
DX: Z51.81 Encounter for therapeutic drug level monitoring (principal); I48.20 Chronic atrial fibrillation, unspecified; Z79.01 Long term (current) use of anticoagulants
CPT/HCPCS: 36415; 85610

== ENCOUNTER 2019-07-26 18:46 | Emergency (ER) | payer MEDICARE, MEDICAID ==
[2019-07-26] MEDS ORDERED: Ketorolac Tromethamine 30 MG/ML VIAL ONE (19:17)
[2019-07-26] MEDS ORDERED: Cyclobenzaprine 10 MG TAB ONE (19:17)
[2019-07-26 19:34] LABS: INR-International Normal Ratio 3.1; PTT 52.1 SEC (22.9-36.1); Prothrombin Time 31.9 SEC (12.0-14.7)
[2019-07-26 19:40] LABS: Band 5 % (5-11); Eosinophils 2 % (0-10); Hemoglobin 11.3 g/dL (14.0-18.0); Lymphocytes 12 % (21-51); MDiff Complete? YES; Mean Corpuscular HGB CONC 30.7 g/dL (32.0-36.0); Mean Corpuscular Hemoglobin 28.1 pg (27.0-31.0); Mean Corpuscular Volume 91.6 fL (78.0-98.0); Mean Platelet Volume 6.4 fL (7.4-10.4); Monocytes 4 % (0-10); Neutrophil 73 % (42-75); Platelet Count 302 thou/uL (130-400); Platelet Morphology Comment Appears Adequate; RBC Distribution Width 11.8 % (11.5-14.5); Reactive Lymphocytes 4 % (0-10); Red Blood Cell (RBC) Count 4.02 mill/uL (4.70-6.10); White Blood Cell (WBC) Count 12.7 thou/uL (4.8-10.8)
[2019-07-26 19:42] LABS: Anion Gap 16 mmol/L (10-20); BUN (Urea Nitrogen) 20 mg/dL (8.4-25.7); Calc. Creatinine Clearance 0 mL/min (70-130); Calcium 9.6 mg/dL (7.8-10.44); Carbon Dioxide 25 mmol/L (23-31); Chloride 103 mmol/L (98-107); Estimated GFR-MDRD 64; Glucose 113 mg/dL (83-110); Potassium 4.3 mmol/L (3.5-5.1); Sodium 140 mmol/L (136-145)
--- NOTE | 2019-07-26 19:54 | RAD ---
XR Lumbar Spine 2 Or 3 View: 07/26/2019 7:19 PM Low back pain following injury COMPARISON: Prior exam dated September 29, 2017 FINDINGS: Fracture: There is a stable superior endplate compression fracture of L2. Alignment: Anterolisthesis of L3 on L4 and L4 and L5 are stable. Degenerative Change: Moderate to severe spondylosis of the lumbar spine is stable. Bone Mineralization:There is mild diffuse osteopenia. Soft tissues: There are mild vascular calcifications involving the abdominal aorta. IMPRESSION: Stable spondylosis of the lumbar spine. Stable chronic superior endplate compression frac ture of L2.
== END 2019-07-26 20:15 | disposition home or self-care (01) ==
LOC: MADERS 18:46
DX: S39.012A Strain of muscle, fascia and tendon of lower back, initial encounter (principal); I48.91 Unspecified atrial fibrillation; E03.9 Hypothyroidism, unspecified; I10 Essential (primary) hypertension; Z79.01 Long term (current) use of anticoagulants; Z79.899 Other long term (current) drug therapy; X50.1XXA Overexertion from prolonged static or awkward postures, initial encounter; Y93.B9 Activity, other involving muscle strengthening exercises
CPT/HCPCS: 36415; 72100; 80048; 85025; 85610; 85730; 96372; J1885

== ENCOUNTER 2019-08-06 10:03 | Outpatient (CLI) | payer MEDICARE, MEDICAID ==
[2019-08-06 10:27] LABS: INR-International Normal Ratio 3.8; Prothrombin Time 37.2 SEC (12.0-14.7)
[2019-08-06 10:54] LABS: #Basophils 0.1 thou/uL (0.0-0.2); #Eosinphils 0.5 thou/uL (0.0-0.7); #Lymphocytes 1.7 thou/uL (1.20-3.40); #Monocytes 0.7 thou/uL (0.11-0.59); #Neutrophils 5.3 thou/uL (1.40-6.50); %Basophils 1.5 % (0.0-1.0); %Eosinophils 6.4 % (0.0-10.0); %Lymphocytes 20.4 % (21.0-51.0); %Monocytes 7.9 % (0.0-10.0); %Neutrophils 63.9 % (42.0-75.0); Hemoglobin 10.1 g/dL (14.0-18.0); Mean Corpuscular HGB CONC 31.2 g/dL (32.0-36.0); Mean Corpuscular Hemoglobin 28.2 pg (27.0-31.0); Mean Corpuscular Volume 90.5 fL (78.0-98.0); Mean Platelet Volume 5.7 fL (7.4-10.4); Platelet Count 360 thou/uL (130-400); RBC Distribution Width 11.1 % (11.5-14.5); Red Blood Cell (RBC) Count 3.57 mill/uL (4.70-6.10); White Blood Cell (WBC) Count 8.4 thou/uL (4.8-10.8)
[2019-08-06 10:55] LABS: Hypochromia SLIGHT = 6-15 cells (100X) (0-5/hpf); MDiff Complete? YES; Platelet Morphology Comment Appears Adequate
== END 2019-08-06 10:04 | disposition home or self-care (01) ==
LOC: MADLABBHPM 10:03
PROVIDERS: ATTEND Family Medicine
DX: D72.829 Elevated white blood cell count, unspecified (principal); R79.1 Abnormal coagulation profile; D50.9 Iron deficiency anemia, unspecified; E03.9 Hypothyroidism, unspecified; I48.91 Unspecified atrial fibrillation; Z79.01 Long term (current) use of anticoagulants
CPT/HCPCS: 36415; 84443; 85025; 85610

== ENCOUNTER 2019-08-07 11:53 | Outpatient (CLI) | payer MEDICARE, MEDICAID ==
[2019-08-07 12:32] LABS: INR-International Normal Ratio 3.2; Prothrombin Time 32.6 SEC (12.0-14.7)
== END 2019-08-07 11:54 | disposition home or self-care (01) ==
LOC: MADLABBHPM 11:53
PROVIDERS: ATTEND Family Medicine
DX: Z51.81 Encounter for therapeutic drug level monitoring (principal); R79.1 Abnormal coagulation profile; Z79.01 Long term (current) use of anticoagulants
CPT/HCPCS: 36415; 85610

== ENCOUNTER 2019-08-18 08:46 | Outpatient (CLI) | payer MEDICARE, MEDICAID ==
[2019-08-18 09:10] LABS: INR-International Normal Ratio 1.4; Prothrombin Time 16.9 SEC (12.0-14.7)
== END 2019-08-18 08:47 | disposition home or self-care (01) ==
LOC: MADLABBHPM 08:46
PROVIDERS: ATTEND Family Medicine
DX: Z51.81 Encounter for therapeutic drug level monitoring (principal); R79.1 Abnormal coagulation profile; Z79.01 Long term (current) use of anticoagulants
CPT/HCPCS: 36415; 85610

== ENCOUNTER 2019-08-22 08:33 | Outpatient (CLI) | payer MEDICARE, MEDICAID ==
[2019-08-22 09:03] LABS: INR-International Normal Ratio 1.7; Prothrombin Time 20.3 SEC (12.0-14.7)
== END 2019-08-22 08:34 | disposition home or self-care (01) ==
LOC: MADLAB 08:33
PROVIDERS: ATTEND Family Medicine
DX: Z51.81 Encounter for therapeutic drug level monitoring (principal); R79.1 Abnormal coagulation profile; Z79.01 Long term (current) use of anticoagulants
CPT/HCPCS: 36415; 85610

== ENCOUNTER 2019-08-29 09:08 | Outpatient (CLI) | payer MEDICARE, MEDICAID ==
[2019-08-29 09:35] LABS: INR-International Normal Ratio 1.8; Prothrombin Time 20.6 SEC (12.0-14.7)
== END 2019-08-29 09:09 | disposition home or self-care (01) ==
LOC: MADLAB 09:08
PROVIDERS: ATTEND Family Medicine
DX: Z51.81 Encounter for therapeutic drug level monitoring (principal); R79.1 Abnormal coagulation profile; Z79.01 Long term (current) use of anticoagulants
CPT/HCPCS: 36415; 85610

== ENCOUNTER 2019-09-26 11:36 | Outpatient (CLI) | payer MEDICARE, MEDICAID ==
[2019-09-26 11:57] LABS: INR-International Normal Ratio 2.9; Prothrombin Time 30.4 SEC (12.0-14.7)
== END 2019-09-26 11:37 | disposition home or self-care (01) ==
LOC: MADLABBHPM 11:36
PROVIDERS: ATTEND Family Medicine
DX: Z51.81 Encounter for therapeutic drug level monitoring (principal); R79.1 Abnormal coagulation profile; Z79.01 Long term (current) use of anticoagulants
CPT/HCPCS: 36415; 85610

== ENCOUNTER 2019-10-17 08:19 | Outpatient (CLI) | payer MEDICARE, MEDICAID ==
[2019-10-17 08:41] LABS: Prothrombin Time 30.5 SEC (12.0-14.7)
== END 2019-10-17 08:20 | disposition home or self-care (01) ==
LOC: MADLABBHPM 08:19
PROVIDERS: ATTEND Family Medicine
DX: Z51.81 Encounter for therapeutic drug level monitoring (principal); R79.1 Abnormal coagulation profile; Z79.01 Long term (current) use of anticoagulants
CPT/HCPCS: 36415; 85610

== ENCOUNTER 2019-10-23 11:02 | Outpatient (CLI) | payer MEDICARE, MEDICAID ==
[2019-10-23 11:39] LABS: INR-International Normal Ratio 1.6; Prothrombin Time 19.2 SEC (12.0-14.7)
== END 2019-10-23 11:03 | disposition home or self-care (01) ==
LOC: MADLABBHPM 11:02
PROVIDERS: ATTEND Family Medicine
DX: Z51.81 Encounter for therapeutic drug level monitoring (principal); R79.1 Abnormal coagulation profile; Z79.01 Long term (current) use of anticoagulants
CPT/HCPCS: 36415; 85610

== ENCOUNTER 2019-11-05 10:46 | Outpatient (CLI) | payer MEDICARE, MEDICAID ==
[2019-11-05 11:08] LABS: INR-International Normal Ratio 2.4; Prothrombin Time 25.9 sec (12.0-14.7)
== END 2019-11-05 10:47 | disposition home or self-care (01) ==
LOC: MADLAB 10:46
PROVIDERS: ATTEND Family Medicine
DX: Z51.81 Encounter for therapeutic drug level monitoring (principal); R79.1 Abnormal coagulation profile; Z79.01 Long term (current) use of anticoagulants
CPT/HCPCS: 36415; 85610

== ENCOUNTER 2019-12-01 09:17 | Outpatient (CLI) | payer MEDICARE, MEDICAID ==
[2019-12-01 09:42] LABS: INR-International Normal Ratio 3.4
== END 2019-12-01 09:18 | disposition home or self-care (01) ==
LOC: MADLAB 09:17
PROVIDERS: ATTEND Family Medicine
DX: Z51.81 Encounter for therapeutic drug level monitoring (principal); R79.1 Abnormal coagulation profile; Z79.01 Long term (current) use of anticoagulants
CPT/HCPCS: 36415; 81003; 82043; 85610

== ENCOUNTER 2019-12-05 09:21 | Emergency (ER) | payer MEDICARE, MEDICAID ==
[2019-12-05 10:17] LABS: INR-International Normal Ratio 1.5; Prothrombin Time 17.7 sec (12.0-14.7)
== END 2019-12-05 11:17 | disposition home or self-care (01) ==
LOC: MADERS 09:21
DX: S40.022A Contusion of left upper arm, initial encounter (principal); E78.5 Hyperlipidemia, unspecified; E78.00 Pure hypercholesterolemia, unspecified; M10.9 Gout, unspecified; I25.2 Old myocardial infarction; I48.91 Unspecified atrial fibrillation; E03.9 Hypothyroidism, unspecified; I10 Essential (primary) hypertension; Z79.899 Other long term (current) drug therapy; Z79.01 Long term (current) use of anticoagulants; X58.XXXA Exposure to other specified factors, initial encounter
CPT/HCPCS: 36415; 85610; 99283

== ENCOUNTER 2019-12-08 09:59 | Outpatient (CLI) | payer MEDICARE, MEDICAID ==
[2019-12-08 10:32] LABS: INR-International Normal Ratio 1.7; Prothrombin Time 19.7 sec (12.0-14.7)
== END 2019-12-08 10:00 | disposition home or self-care (01) ==
LOC: MADLAB 09:59
PROVIDERS: ATTEND Family Medicine
DX: Z51.81 Encounter for therapeutic drug level monitoring (principal); R79.1 Abnormal coagulation profile; Z79.01 Long term (current) use of anticoagulants
CPT/HCPCS: 36415; 85610

== ENCOUNTER 2019-12-16 09:15 | Outpatient (CLI) | payer MEDICARE, MEDICAID ==
[2019-12-16 09:36] LABS: INR-International Normal Ratio 1.7; Prothrombin Time 19.6 sec (12.0-14.7)
== END 2019-12-16 09:16 | disposition home or self-care (01) ==
LOC: MADLAB 09:15
PROVIDERS: ATTEND Family Medicine
DX: Z51.81 Encounter for therapeutic drug level monitoring (principal); R79.1 Abnormal coagulation profile; Z79.01 Long term (current) use of anticoagulants
CPT/HCPCS: 36415; 85610

== ENCOUNTER 2020-01-05 10:17 | Outpatient (CLI) | payer MEDICARE, MEDICAID ==
[2020-01-05 11:00] LABS: INR-International Normal Ratio 3.4; Prothrombin Time 34.3 sec (12.0-14.7)
== END 2020-01-05 10:18 | disposition home or self-care (01) ==
LOC: MADLAB 10:17
PROVIDERS: ATTEND Family Medicine
DX: Z51.81 Encounter for therapeutic drug level monitoring (principal); R79.1 Abnormal coagulation profile; Z79.01 Long term (current) use of anticoagulants
CPT/HCPCS: 36415; 85610

== ENCOUNTER 2020-01-14 10:54 | Outpatient (CLI) | payer MEDICARE, MEDICAID ==
[2020-01-14 11:32] LABS: INR-International Normal Ratio 2.2
== END 2020-01-14 10:55 | disposition home or self-care (01) ==
LOC: MADLABSP 10:54
PROVIDERS: ATTEND Family Medicine
DX: Z51.81 Encounter for therapeutic drug level monitoring (principal); R79.1 Abnormal coagulation profile; Z79.01 Long term (current) use of anticoagulants
CPT/HCPCS: 36415; 85610

== ENCOUNTER 2020-03-01 10:00 | Outpatient (CLI) | payer MEDICARE, MEDICAID ==
[2020-03-01 10:45] LABS: Prothrombin Time 46.1 sec (12.0-14.7)
== END 2020-03-01 10:01 | disposition home or self-care (01) ==
LOC: MADLAB 10:00
PROVIDERS: ATTEND Family Medicine
DX: Z51.81 Encounter for therapeutic drug level monitoring (principal); R79.1 Abnormal coagulation profile; Z79.01 Long term (current) use of anticoagulants
CPT/HCPCS: 36415; 85610

== ENCOUNTER 2020-03-03 10:20 | Outpatient (CLI) | payer MEDICARE, MEDICAID ==
[2020-03-03 10:38] LABS: INR-International Normal Ratio 2.7; Prothrombin Time 28.7 sec (12.0-14.7)
== END 2020-03-03 10:21 | disposition home or self-care (01) ==
LOC: MADLABBHPM 10:20
PROVIDERS: ATTEND Family Medicine
DX: Z51.81 Encounter for therapeutic drug level monitoring (principal); R79.1 Abnormal coagulation profile; Z79.01 Long term (current) use of anticoagulants
CPT/HCPCS: 36415; 85610

== ENCOUNTER 2020-03-10 09:58 | Outpatient (CLI) | payer MEDICARE, MEDICAID ==
[2020-03-10 10:29] LABS: INR-International Normal Ratio 2.4
== END 2020-03-10 09:59 | disposition home or self-care (01) ==
LOC: MADLAB 09:58
PROVIDERS: ATTEND Family Medicine
DX: Z51.81 Encounter for therapeutic drug level monitoring (principal); R79.1 Abnormal coagulation profile; Z79.01 Long term (current) use of anticoagulants
CPT/HCPCS: 36415; 85610

== ENCOUNTER 2020-04-01 10:07 | Outpatient (CLI) | payer MEDICARE, MEDICAID ==
[2020-04-01 10:37] LABS: INR-International Normal Ratio 1.9; Prothrombin Time 22.3 sec (12.0-14.7)
== END 2020-04-01 10:08 | disposition home or self-care (01) ==
LOC: MADLAB 10:07
PROVIDERS: ATTEND Family Medicine
DX: Z51.81 Encounter for therapeutic drug level monitoring (principal); R79.1 Abnormal coagulation profile; Z79.01 Long term (current) use of anticoagulants
CPT/HCPCS: 36415; 85610

== ENCOUNTER 2020-04-22 10:01 | Outpatient (CLI) | payer MEDICARE, OTHER ==
[2020-04-22 10:23] LABS: INR-International Normal Ratio 2.2; Prothrombin Time 24.7 sec (12.0-14.7)
== END 2020-04-22 10:02 | disposition home or self-care (01) ==
LOC: MADLABBHPM 10:01
PROVIDERS: ATTEND Family Medicine
DX: Z51.81 Encounter for therapeutic drug level monitoring (principal); R79.1 Abnormal coagulation profile; Z79.01 Long term (current) use of anticoagulants
CPT/HCPCS: 36415; 85610

== ENCOUNTER 2020-06-02 11:24 | Outpatient (CLI) | payer MEDICARE, OTHER ==
[2020-06-02 11:47] LABS: INR-International Normal Ratio 1.7; Prothrombin Time 20.1 sec (12.0-14.7)
== END 2020-06-02 11:25 | disposition home or self-care (01) ==
LOC: MADLAB 11:24
PROVIDERS: ATTEND Family Medicine
DX: Z51.81 Encounter for therapeutic drug level monitoring (principal); R79.1 Abnormal coagulation profile; Z79.01 Long term (current) use of anticoagulants
CPT/HCPCS: 36415; 85610

== ENCOUNTER 2020-06-09 10:29 | Outpatient (CLI) | payer MEDICARE, OTHER ==
[2020-06-09 11:40] LABS: Prothrombin Time 22.8 sec (12.0-14.7)
== END 2020-06-09 10:30 | disposition home or self-care (01) ==
LOC: MADLAB 10:29
PROVIDERS: ATTEND Family Medicine
DX: Z51.81 Encounter for therapeutic drug level monitoring (principal); R79.1 Abnormal coagulation profile; Z79.01 Long term (current) use of anticoagulants
CPT/HCPCS: 36415; 85610

== ENCOUNTER 2020-06-28 08:25 | Outpatient (CLI) | payer MEDICARE, OTHER ==
[2020-06-28 09:09] LABS: INR-International Normal Ratio 1.8; Prothrombin Time 21.1 sec (12.0-14.7)
== END 2020-06-28 08:26 | disposition home or self-care (01) ==
LOC: MADLAB 08:25
PROVIDERS: ATTEND Family Medicine
DX: Z51.81 Encounter for therapeutic drug level monitoring (principal); R79.1 Abnormal coagulation profile; Z79.01 Long term (current) use of anticoagulants
CPT/HCPCS: 36415; 85610

== ENCOUNTER 2020-07-07 12:51 | Outpatient (CLI) | payer MEDICARE, OTHER ==
[2020-07-07 13:05] LABS: INR-International Normal Ratio 2.1; Prothrombin Time 23.7 sec (12.0-14.7)
== END 2020-07-07 12:52 | disposition home or self-care (01) ==
LOC: MADLAB 12:51
PROVIDERS: ATTEND Family Medicine
DX: Z51.81 Encounter for therapeutic drug level monitoring (principal); R79.1 Abnormal coagulation profile; Z79.01 Long term (current) use of anticoagulants
CPT/HCPCS: 36415; 85610

== ENCOUNTER 2020-08-17 08:39 | Outpatient (CLI) | payer MEDICARE, OTHER ==
[2020-08-17 09:28] LABS: INR-International Normal Ratio 1.4; Prothrombin Time 17.8 sec (12.0-14.7)
== END 2020-08-17 08:40 | disposition home or self-care (01) ==
LOC: MADLAB 08:39
PROVIDERS: ATTEND Family Medicine
DX: Z51.81 Encounter for therapeutic drug level monitoring (principal); R79.1 Abnormal coagulation profile; Z79.01 Long term (current) use of anticoagulants
CPT/HCPCS: 36415; 85610

== ENCOUNTER 2020-09-01 10:06 | Outpatient (CLI) | payer MEDICARE, OTHER ==
[2020-09-01 10:29] LABS: INR-International Normal Ratio 1.4; Prothrombin Time 17.5 sec (12.0-14.7)
== END 2020-09-01 10:07 | disposition home or self-care (01) ==
LOC: MADLAB 10:06
PROVIDERS: ATTEND Family Medicine
DX: Z51.81 Encounter for therapeutic drug level monitoring (principal); R79.1 Abnormal coagulation profile; Z79.01 Long term (current) use of anticoagulants
CPT/HCPCS: 36415; 85610

== ENCOUNTER 2020-09-15 09:46 | Outpatient (CLI) | payer MEDICARE, OTHER ==
[2020-09-15 10:11] LABS: Prothrombin Time 23.3 sec (12.0-14.7)
== END 2020-09-15 09:47 | disposition home or self-care (01) ==
LOC: MADLAB 09:46
PROVIDERS: ATTEND Family Medicine
DX: Z51.81 Encounter for therapeutic drug level monitoring (principal); R79.1 Abnormal coagulation profile; Z79.01 Long term (current) use of anticoagulants
CPT/HCPCS: 36415; 85610

== ENCOUNTER 2020-09-22 06:25 | Outpatient (CLI) | payer MEDICARE, OTHER ==
[2020-09-22 07:21] LABS: Prothrombin Time 23.4 sec (12.0-14.7)
== END 2020-09-22 06:26 | disposition home or self-care (01) ==
LOC: MADLAB 06:25
PROVIDERS: ATTEND Family Medicine
DX: R79.1 Abnormal coagulation profile (principal)
CPT/HCPCS: 36415; 85610

== ENCOUNTER 2020-09-29 10:38 | Outpatient (CLI) | payer MEDICARE ==
[2020-09-29 11:14] LABS: INR-International Normal Ratio 1.8; Prothrombin Time 20.9 sec (12.0-14.7)
== END 2020-09-29 10:39 | disposition home or self-care (01) ==
LOC: MADLAB 10:38
PROVIDERS: ATTEND Family Medicine
DX: Z51.81 Encounter for therapeutic drug level monitoring (principal); R79.1 Abnormal coagulation profile; Z79.01 Long term (current) use of anticoagulants
CPT/HCPCS: 36415; 85610

== ENCOUNTER 2020-10-06 09:55 | Outpatient (CLI) | payer MEDICARE ==
[2020-10-06 10:24] LABS: INR-International Normal Ratio 2.1; Prothrombin Time 23.8 sec (12.0-14.7)
== END 2020-10-06 09:56 | disposition home or self-care (01) ==
LOC: MADLAB 09:55
PROVIDERS: ATTEND Family Medicine
DX: Z51.81 Encounter for therapeutic drug level monitoring (principal); R79.1 Abnormal coagulation profile; Z79.01 Long term (current) use of anticoagulants
CPT/HCPCS: 36415; 85610

== ENCOUNTER 2020-10-25 08:22 | Outpatient (CLI) | payer MEDICARE | END 2020-10-25 08:23 | disposition home or self-care (01) | LOC: MADLAB 08:22 | PROVIDERS: ATTEND Family Medicine | DX: Z51.81 Encounter for therapeutic drug level monitoring (principal); R79.1 Abnormal coagulation profile; Z79.899 Other long term (current) drug therapy | CPT/HCPCS: 36415; 85610 ==

== ENCOUNTER 2020-11-09 08:28 | Outpatient (CLI) | payer MEDICARE ==
[2020-11-09 09:09] LABS: INR-International Normal Ratio 2.1; Prothrombin Time 24.3 sec (12.0-14.7)
[2020-11-09 09:20] LABS: ALT (SGPT) 11 U/L (8-55); AST (SGOT) 13 U/L (5-34); Albumin 3.6 g/dL (3.4-4.8); Alkaline Phosphatase 69 U/L (40-110); Anion Gap 16 mmol/L (10-20); BUN (Urea Nitrogen) 25 mg/dL (8.4-25.7); Bilirubin, Total 0.6 mg/dL (0.2-1.2); Calc. Creatinine Clearance 0 mL/min (70-130); Calcium 9.1 mg/dL (7.8-10.44); Carbon Dioxide 24 mmol/L (23-31); Chloride 104 mmol/L (98-107); Cholesterol 146 mg/dl (< 200 Desired); Globulin 3.2 g/dL (2.4-3.5); Glucose 105 mg/dL (83-110); HDL Cholesterol 49 mg/dL (>60 Neg Risk); LDL Cholesterol, Calculated 89 mg/dL; Protein, Total 6.8 g/dL (5.8-8.1); Sodium 140 mmol/L (136-145); Triglycerides 41 mg/dL (Less than 150); Uric Acid 5.9 mg/dL (3.5-7.2)
[2020-11-09 09:34] LABS: Thyroid Stimulating Hormone 3.7363 uIU/mL (0.35-4.94)
[2020-11-09 16:58] LABS: Hemoglobin A1c 5.1 % (4.0-6.0)
== END 2020-11-09 08:29 | disposition home or self-care (01) ==
LOC: MADLAB 08:28
PROVIDERS: ATTEND Family Medicine
DX: Z51.81 Encounter for therapeutic drug level monitoring (principal); I11.0 Hypertensive heart disease with heart failure; I50.9 Heart failure, unspecified; E88.81 Metabolic syndrome and other insulin resistance; Z79.01 Long term (current) use of anticoagulants
CPT/HCPCS: 36415; 80053; 80061; 83036; 84443; 84481; 84550; 85610

== ENCOUNTER 2020-12-13 07:31 | Outpatient (CLI) | payer MEDICARE ==
[2020-12-13 08:16] LABS: INR-International Normal Ratio 2.1; Prothrombin Time 24.1 sec (12.0-14.7)
[2020-12-13 08:26] LABS: ALT (SGPT) 11 U/L (8-55); AST (SGOT) 14 U/L (5-34); Albumin 3.6 g/dL (3.4-4.8); Alkaline Phosphatase 72 U/L (40-110); Anion Gap 14 mmol/L (10-20); BUN (Urea Nitrogen) 27 mg/dL (8.4-25.7); Bilirubin, Total 0.4 mg/dL (0.2-1.2); Calc. Creatinine Clearance 0 mL/min (70-130); Calcium 9.2 mg/dL (7.8-10.44); Carbon Dioxide 26 mmol/L (23-31); Cardiac Risk 2.8 (Less than 4.5); Chloride 104 mmol/L (98-107); Cholesterol 135 mg/dl (< 200 Desired); Globulin 3.1 g/dL (2.4-3.5); Glucose 91 mg/dL (83-110); HDL Cholesterol 48 mg/dL (>60 Neg Risk); LDL Cholesterol, Calculated 78 mg/dL; Potassium 4.1 mmol/L (3.5-5.1); Protein, Total 6.7 g/dL (5.8-8.1); Sodium 140 mmol/L (136-145); Triglycerides 44 mg/dL (Less than 150); Uric Acid 6.2 mg/dL (3.5-7.2)
[2020-12-13 08:45] LABS: Thyroid Stimulating Hormone 4.9629 uIU/mL (0.35-4.94)
[2020-12-13 16:57] LABS: Hemoglobin A1c 5.1 % (4.0-6.0)
== END 2020-12-13 07:32 | disposition home or self-care (01) ==
LOC: MADLAB 07:31
PROVIDERS: ATTEND Family Medicine
DX: Z51.81 Encounter for therapeutic drug level monitoring (principal); E79.0 Hyperuricemia without signs of inflammatory arthritis and tophaceous disease; E88.81 Metabolic syndrome and other insulin resistance; I11.0 Hypertensive heart disease with heart failure; I50.9 Heart failure, unspecified; Z79.01 Long term (current) use of anticoagulants
CPT/HCPCS: 36415; 80053; 80061; 83036; 84443; 84481; 84550; 85610

== ENCOUNTER 2021-02-07 09:46 | Outpatient (CLI) | payer MEDICARE ==
[2021-02-07 10:23] LABS: INR-International Normal Ratio 2.4; Prothrombin Time 26.6 sec (12.0-14.7)
== END 2021-02-07 09:47 | disposition home or self-care (01) ==
LOC: MADLAB 09:46
PROVIDERS: ATTEND Family Medicine
DX: Z51.81 Encounter for therapeutic drug level monitoring (principal); R79.1 Abnormal coagulation profile; Z79.01 Long term (current) use of anticoagulants
CPT/HCPCS: 36415; 85610

== ENCOUNTER 2021-02-18 13:11 | Outpatient (CLI) | payer MEDICARE | END 2021-02-18 13:12 | disposition home or self-care (01) | LOC: MADLAB 13:11 → MADRAD 13:12 | PROVIDERS: ATTEND Family Medicine | DX: M17.12 Unilateral primary osteoarthritis, left knee (principal) ==

== ENCOUNTER 2021-03-07 11:42 | Outpatient (CLI) | payer MEDICARE ==
[2021-03-07 12:09] LABS: INR-International Normal Ratio 1.9; Prothrombin Time 21.7 sec (12.0-14.7)
== END 2021-03-07 11:43 | disposition home or self-care (01) ==
LOC: MADLAB 11:42
PROVIDERS: ATTEND Family Medicine
DX: Z51.81 Encounter for therapeutic drug level monitoring (principal); R79.1 Abnormal coagulation profile; Z79.01 Long term (current) use of anticoagulants
CPT/HCPCS: 36415; 85610

== ENCOUNTER 2021-04-04 12:19 | Emergency (ER) | payer MEDICARE ==
[2021-04-04 13:19] LABS: #Basophils 0.1 thou/uL (0.0-0.2); #Eosinphils 0.1 thou/uL (0.0-0.7); #Lymphocytes 1.7 thou/uL (1.20-3.40); #Monocytes 0.5 thou/uL (0.11-0.59); #Neutrophils 4.6 thou/uL (1.40-6.50); %Basophils 1.5 % (0.0-1.0); %Eosinophils 1.8 % (0.0-10.0); %Lymphocytes 23.9 % (21.0-51.0); %Monocytes 6.7 % (0.0-10.0); %Neutrophils 66.2 % (42.0-75.0); Hemoglobin 11.1 g/dL (14.0-18.0); Mean Corpuscular HGB CONC 30.8 g/dL (32.0-36.0); Mean Corpuscular Hemoglobin 28.8 pg (27.0-31.0); Mean Corpuscular Volume 93.6 fL (78.0-98.0); Mean Platelet Volume 6.1 fL (7.4-10.4); Platelet Count 253 thou/uL (130-400); RBC Distribution Width 12.8 % (11.5-14.5); Red Blood Cell (RBC) Count 3.85 mill/uL (4.70-6.10)
[2021-04-04 13:31] LABS: INR-International Normal Ratio 2.8; PTT 49.3 sec (22.9-36.1); Prothrombin Time 30.3 sec (12.0-14.7)
[2021-04-04 13:37] LABS: ALT (SGPT) 8 U/L (8-55); AST (SGOT) 12 U/L (5-34); Albumin 3.5 g/dL (3.4-4.8); Alkaline Phosphatase 67 U/L (40-110); Anion Gap 13 mmol/L (10-20); BUN (Urea Nitrogen) 21 mg/dL (8.4-25.7); Bilirubin, Total 0.5 mg/dL (0.2-1.2); Calc. Creatinine Clearance 0 mL/min (70-130); Calcium 9.5 mg/dL (7.8-10.44); Carbon Dioxide 26 mmol/L (23-31); Chloride 105 mmol/L (98-107); Globulin 2.3 g/dL (2.4-3.5); Glucose 83 mg/dL (83-110); Potassium 3.8 mmol/L (3.5-5.1); Protein, Total 5.8 g/dL (5.8-8.1); Sodium 140 mmol/L (136-145)
== END 2021-04-04 14:02 | disposition home or self-care (01) ==
LOC: MADERS 12:19
DX: S06.0X0A Concussion without loss of consciousness, initial encounter (principal); S00.83XA Contusion of other part of head, initial encounter; E04.1 Nontoxic single thyroid nodule; I25.2 Old myocardial infarction; E03.9 Hypothyroidism, unspecified; I10 Essential (primary) hypertension; Z79.899 Other long term (current) drug therapy; W19.XXXA Unspecified fall, initial encounter
CPT/HCPCS: 70450; 72125; 80053; 85025; 85610; 85730

== ENCOUNTER 2021-04-06 10:23 | Outpatient (CLI) | payer MEDICARE ==
[2021-04-06 10:48] LABS: #Basophils 0.1 thou/uL (0.0-0.2); #Eosinphils 0.2 thou/uL (0.0-0.7); #Lymphocytes 1.7 thou/uL (1.20-3.40); #Monocytes 0.4 thou/uL (0.11-0.59); #Neutrophils 4.9 thou/uL (1.40-6.50); %Basophils 1.8 % (0.0-1.0); %Eosinophils 2.5 % (0.0-10.0); %Lymphocytes 23.2 % (21.0-51.0); %Monocytes 5.5 % (0.0-10.0); %Neutrophils 67.1 % (42.0-75.0); Hemoglobin 11.5 g/dL (14.0-18.0); Mean Corpuscular HGB CONC 30.8 g/dL (32.0-36.0); Mean Corpuscular Hemoglobin 28.6 pg (27.0-31.0); Mean Corpuscular Volume 92.7 fL (78.0-98.0); Mean Platelet Volume 6.2 fL (7.4-10.4); Platelet Count 292 thou/uL (130-400); RBC Distribution Width 12.6 % (11.5-14.5); Red Blood Cell (RBC) Count 4.04 mill/uL (4.70-6.10); White Blood Cell (WBC) Count 7.3 thou/uL (4.8-10.8)
[2021-04-06 10:55] LABS: INR-International Normal Ratio 2.7; Prothrombin Time 29.1 sec (12.0-14.7)
[2021-04-06 11:03] LABS: Bilirubin, Total 0.5 mg/dL (0.2-1.2); Calcium 9.5 mg/dL (7.8-10.44); Chloride 106 mmol/L (98-107); Sodium 143 mmol/L (136-145)
[2021-04-06 11:57] LABS: ALT (SGPT) 8 U/L (8-55); AST (SGOT) 11 U/L (5-34); Albumin 3.8 g/dL (3.4-4.8); Alkaline Phosphatase 68 U/L (40-110); Anion Gap 15 mmol/L (10-20); BUN (Urea Nitrogen) 19 mg/dL (8.4-25.7); Calc. Creatinine Clearance 0 mL/min (70-130); Carbon Dioxide 26 mmol/L (23-31); Globulin 2.8 g/dL (2.4-3.5); Glucose 104 mg/dL (83-110); Protein, Total 6.6 g/dL (5.8-8.1)
== END 2021-04-06 10:24 | disposition home or self-care (01) ==
LOC: MADLAB 10:23
PROVIDERS: ATTEND Family Medicine
DX: Z51.81 Encounter for therapeutic drug level monitoring (principal); I11.0 Hypertensive heart disease with heart failure; I50.9 Heart failure, unspecified; Z79.01 Long term (current) use of anticoagulants
CPT/HCPCS: 36415; 80053; 85025; 85610

== ENCOUNTER 2021-04-25 09:56 | Outpatient (CLI) | payer MEDICARE | END 2021-04-25 09:57 | disposition home or self-care (01) | LOC: MADLAB 09:56 → MADULT 09:57 | PROVIDERS: ATTEND Family Medicine | DX: E04.1 Nontoxic single thyroid nodule (principal) | CPT/HCPCS: 76536 ==

== ENCOUNTER 2021-05-09 10:05 | Outpatient (CLI) | payer MEDICARE ==
[2021-05-09 10:30] LABS: INR-International Normal Ratio 2.6; Prothrombin Time 28.5 sec (12.0-14.7)
== END 2021-05-09 10:06 | disposition home or self-care (01) ==
LOC: MADLAB 10:05
PROVIDERS: ATTEND Family Medicine
DX: Z51.81 Encounter for therapeutic drug level monitoring (principal); R79.1 Abnormal coagulation profile; Z79.01 Long term (current) use of anticoagulants
CPT/HCPCS: 36415; 85610

== ENCOUNTER 2021-05-30 10:10 | Outpatient (CLI) | payer MEDICARE ==
[2021-05-30 10:45] LABS: Prothrombin Time 57.4 sec (12.0-14.7)
[2021-05-30 11:07] LABS: INR-International Normal Ratio 6.3
== END 2021-05-30 10:11 | disposition home or self-care (01) ==
LOC: MADLAB 10:10
PROVIDERS: ATTEND Family Medicine
DX: Z51.81 Encounter for therapeutic drug level monitoring (principal); I48.20 Chronic atrial fibrillation, unspecified; Z79.01 Long term (current) use of anticoagulants
CPT/HCPCS: 36415; 85610

== ENCOUNTER 2021-05-31 10:23 | Outpatient (CLI) | payer MEDICARE ==
[2021-05-31 10:48] LABS: Prothrombin Time 50.5 sec (12.0-14.7)
[2021-05-31 11:03] LABS: INR-International Normal Ratio 5.4
== END 2021-05-31 10:24 | disposition home or self-care (01) ==
LOC: MADLAB 10:23
PROVIDERS: ATTEND Family Medicine
DX: Z51.81 Encounter for therapeutic drug level monitoring (principal); I48.20 Chronic atrial fibrillation, unspecified; R79.1 Abnormal coagulation profile; Z79.01 Long term (current) use of anticoagulants
CPT/HCPCS: 36415; 85610

== ENCOUNTER 2021-06-01 09:58 | Outpatient (CLI) | payer MEDICARE ==
[2021-06-01 12:19] LABS: Prothrombin Time 45.4 sec (12.0-14.7)
[2021-06-01 13:43] LABS: INR-International Normal Ratio 4.7
== END 2021-06-01 09:59 | disposition home or self-care (01) ==
LOC: MADLAB 09:58
PROVIDERS: ATTEND Family Medicine
DX: Z51.81 Encounter for therapeutic drug level monitoring (principal); I48.20 Chronic atrial fibrillation, unspecified; Z79.01 Long term (current) use of anticoagulants
CPT/HCPCS: 36415; 85610

== ENCOUNTER 2021-06-03 10:14 | Outpatient (CLI) | payer MEDICARE ==
[2021-06-03 10:34] LABS: INR-International Normal Ratio 3.3; Prothrombin Time 34.2 sec (12.0-14.7)
== END 2021-06-03 10:15 | disposition home or self-care (01) ==
LOC: MADLAB 10:14
PROVIDERS: ATTEND Family Medicine
DX: Z51.81 Encounter for therapeutic drug level monitoring (principal); I48.20 Chronic atrial fibrillation, unspecified; Z79.01 Long term (current) use of anticoagulants
CPT/HCPCS: 36415; 85610

== ENCOUNTER 2021-06-20 09:36 | Outpatient (CLI) | payer MEDICARE ==
[2021-06-20 10:01] LABS: INR-International Normal Ratio 1.7; Prothrombin Time 20.5 sec (12.0-14.7)
== END 2021-06-20 09:37 | disposition home or self-care (01) ==
LOC: MADLAB 09:36
PROVIDERS: ATTEND Family Medicine
DX: Z51.81 Encounter for therapeutic drug level monitoring (principal); I48.20 Chronic atrial fibrillation, unspecified; Z79.01 Long term (current) use of anticoagulants
CPT/HCPCS: 36415; 85610

== ENCOUNTER 2021-06-28 09:46 | Outpatient (CLI) | payer MEDICARE ==
[2021-06-28 10:11] LABS: Prothrombin Time 23.2 sec (12.0-14.7)
== END 2021-06-28 09:47 | disposition home or self-care (01) ==
LOC: MADLAB 09:46
PROVIDERS: ATTEND Family Medicine
DX: Z51.81 Encounter for therapeutic drug level monitoring (principal); I48.21 Permanent atrial fibrillation; Z79.01 Long term (current) use of anticoagulants
CPT/HCPCS: 36415; 85610

== ENCOUNTER 2021-07-08 09:42 | Outpatient (CLI) | payer MEDICARE ==
[2021-07-08 10:15] LABS: INR-International Normal Ratio 2.2; Prothrombin Time 25.1 sec (12.0-14.7)
== END 2021-07-08 09:43 | disposition home or self-care (01) ==
LOC: MADLAB 09:42
PROVIDERS: ATTEND Family Medicine
DX: Z51.81 Encounter for therapeutic drug level monitoring (principal); Z79.01 Long term (current) use of anticoagulants; I48.20 Chronic atrial fibrillation, unspecified
CPT/HCPCS: 36415; 85610

== ENCOUNTER 2021-08-03 10:36 | Outpatient (CLI) | payer MEDICARE ==
[2021-08-03 11:02] LABS: INR-International Normal Ratio 1.7; Prothrombin Time 20.3 sec (12.0-14.7)
== END 2021-08-03 10:37 | disposition home or self-care (01) ==
LOC: MADLAB 10:36
PROVIDERS: ATTEND Family Medicine
DX: Z51.81 Encounter for therapeutic drug level monitoring (principal); I48.20 Chronic atrial fibrillation, unspecified; Z79.01 Long term (current) use of anticoagulants
CPT/HCPCS: 36415; 85610

== ENCOUNTER 2021-08-10 10:18 | Outpatient (CLI) | payer MEDICARE ==
[2021-08-10 10:37] LABS: Prothrombin Time 22.6 sec (12.0-14.7)
== END 2021-08-10 10:19 | disposition home or self-care (01) ==
LOC: MADLAB 10:18
PROVIDERS: ATTEND Family Medicine
DX: Z51.81 Encounter for therapeutic drug level monitoring (principal); I48.20 Chronic atrial fibrillation, unspecified; Z79.01 Long term (current) use of anticoagulants
CPT/HCPCS: 36415; 85610

== ENCOUNTER 2021-09-26 09:09 | Outpatient (CLI) | payer MEDICARE ==
[2021-09-26 09:32] LABS: #Basophils 0.2 thou/uL (0.0-0.2); #Eosinphils 0.1 thou/uL (0.0-0.7); #Lymphocytes 1.8 thou/uL (1.20-3.40); #Monocytes 0.7 thou/uL (0.11-0.59); #Neutrophils 6.9 thou/uL (1.40-6.50); %Basophils 1.7 % (0.0-1.0); %Eosinophils 0.7 % (0.0-10.0); %Lymphocytes 19.1 % (21.0-51.0); %Monocytes 6.9 % (0.0-10.0); %Neutrophils 71.6 % (42.0-75.0); Hemoglobin 11.7 g/dL (14.0-18.0); Mean Corpuscular HGB CONC 31.6 g/dL (32.0-36.0); Mean Corpuscular Volume 91.8 fL (78.0-98.0); Mean Platelet Volume 6.1 fL (7.4-10.4); Platelet Count 353 thou/uL (130-400); RBC Distribution Width 11.4 % (11.5-14.5); Red Blood Cell (RBC) Count 4.02 mill/uL (4.70-6.10); White Blood Cell (WBC) Count 9.6 thou/uL (4.8-10.8)
[2021-09-26 10:12] LABS: Alkaline Phosphatase 75 U/L (40-110); Anion Gap 15 mmol/L (10-20); BUN (Urea Nitrogen) 30 mg/dL (8.4-25.7); Bilirubin, Total 0.5 mg/dL (0.2-1.2); Calc. Creatinine Clearance 0 mL/min (70-130); Calcium 9.6 mg/dL (7.8-10.44); Carbon Dioxide 31 mmol/L (23-31); Chloride 98 mmol/L (98-107); Globulin 3.4 g/dL (2.4-3.5); Glucose 90 mg/dL (83-110); Potassium 3.7 mmol/L (3.5-5.1); Protein, Total 7.4 g/dL (5.8-8.1); Sodium 140 mmol/L (136-145)
[2021-09-26 10:13] LABS: ALT (SGPT) 13 U/L (8-55); AST (SGOT) 16 U/L (5-34)
[2021-09-26 11:47] LABS: INR-International Normal Ratio 1.9; Prothrombin Time 21.7 sec (12.0-14.7)
== END 2021-09-26 09:10 | disposition home or self-care (01) ==
LOC: MADLAB 09:09
PROVIDERS: ATTEND Family Medicine
DX: Z51.81 Encounter for therapeutic drug level monitoring (principal); I48.20 Chronic atrial fibrillation, unspecified; D50.9 Iron deficiency anemia, unspecified; M10.9 Gout, unspecified; I10 Essential (primary) hypertension; Z79.01 Long term (current) use of anticoagulants
CPT/HCPCS: 36415; 80053; 82728; 84550; 85025; 85610

== ENCOUNTER 2021-10-17 08:57 | Outpatient (CLI) | payer MEDICARE ==
[2021-10-17 09:22] LABS: INR-International Normal Ratio 2.3; Prothrombin Time 25.4 sec (12.0-14.7)
[2021-10-17 09:27] LABS: Anion Gap 14 mmol/L (10-20); BUN (Urea Nitrogen) 25 mg/dL (8.4-25.7); Calc. Creatinine Clearance 0 mL/min (70-130); Calcium 9.4 mg/dL (7.8-10.44); Carbon Dioxide 28 mmol/L (23-31); Chloride 102 mmol/L (98-107); Glucose 102 mg/dL (83-110); Potassium 3.8 mmol/L (3.5-5.1); Sodium 140 mmol/L (136-145)
[2021-10-17 09:54] LABS: Digoxin 0.51 ng/mL (0.8-2.0)
[2021-10-17 10:16] LABS: #Basophils 0.1 thou/uL (0.0-0.2); #Lymphocytes 1.8 thou/uL (1.20-3.40); #Monocytes 0.5 thou/uL (0.11-0.59); #Neutrophils 5.9 thou/uL (1.40-6.50); %Basophils 1.6 % (0.0-1.0); %Eosinophils 0.2 % (0.0-10.0); %Lymphocytes 21.3 % (21.0-51.0); %Monocytes 5.7 % (0.0-10.0); %Neutrophils 71.3 % (42.0-75.0); Hemoglobin 11.4 g/dL (14.0-18.0); Mean Corpuscular HGB CONC 31.2 g/dL (32.0-36.0); Mean Corpuscular Hemoglobin 28.9 pg (27.0-31.0); Mean Corpuscular Volume 92.6 fL (78.0-98.0); Mean Platelet Volume 7.9 fL (7.4-10.4); Platelet Count 289 thou/uL (130-400); RBC Distribution Width 12.3 % (11.5-14.5); Red Blood Cell (RBC) Count 3.95 mill/uL (4.70-6.10); White Blood Cell (WBC) Count 8.3 thou/uL (4.8-10.8)
== END 2021-10-17 08:58 | disposition home or self-care (01) ==
LOC: MADLAB 08:57
PROVIDERS: ATTEND Family Medicine
DX: Z51.81 Encounter for therapeutic drug level monitoring (principal); I11.0 Hypertensive heart disease with heart failure; I50.30 Unspecified diastolic (congestive) heart failure; Z79.01 Long term (current) use of anticoagulants; I48.20 Chronic atrial fibrillation, unspecified
CPT/HCPCS: 36415; 80048; 80162; 83880; 85025; 85610

== ENCOUNTER 2021-11-07 10:14 | Outpatient (CLI) | payer MEDICARE ==
[2021-11-07 10:34] LABS: Prothrombin Time 23.3 sec (12.0-14.7)
== END 2021-11-07 10:15 | disposition home or self-care (01) ==
LOC: MADLAB 10:14
PROVIDERS: ATTEND Family Medicine
DX: Z51.81 Encounter for therapeutic drug level monitoring (principal); I48.20 Chronic atrial fibrillation, unspecified; Z79.01 Long term (current) use of anticoagulants
CPT/HCPCS: 36415; 85610

== ENCOUNTER 2021-12-08 09:27 | Outpatient (CLI) | payer MEDICARE ==
[2021-12-08 10:07] LABS: INR-International Normal Ratio 2.1
== END 2021-12-08 09:28 | disposition home or self-care (01) ==
LOC: MADLAB 09:27
PROVIDERS: ATTEND Family Medicine
DX: Z51.81 Encounter for therapeutic drug level monitoring (principal); I48.20 Chronic atrial fibrillation, unspecified; Z79.01 Long term (current) use of anticoagulants
CPT/HCPCS: 36415; 85610

== ENCOUNTER 2021-12-23 10:03 | Outpatient (CLI) | payer MEDICARE ==
[2021-12-23 10:33] LABS: #Basophils 0.2 thou/uL (0.0-0.2); #Lymphocytes 1.9 thou/uL (1.20-3.40); #Monocytes 0.6 thou/uL (0.11-0.59); #Neutrophils 7.8 thou/uL (1.40-6.50); %Basophils 1.6 % (0.0-1.0); %Lymphocytes 17.9 % (21.0-51.0); %Monocytes 6.1 % (0.0-10.0); %Neutrophils 74.3 % (42.0-75.0); Hemoglobin 11.4 g/dL (14.0-18.0); Mean Corpuscular HGB CONC 31.2 g/dL (32.0-36.0); Mean Corpuscular Hemoglobin 27.9 pg (27.0-31.0); Mean Corpuscular Volume 89.4 fL (78.0-98.0); Mean Platelet Volume 7.5 fL (7.4-10.4); Platelet Count 289 thou/uL (130-400); RBC Distribution Width 12.7 % (11.5-14.5); Red Blood Cell (RBC) Count 4.08 mill/uL (4.70-6.10); White Blood Cell (WBC) Count 10.5 thou/uL (4.8-10.8)
[2021-12-23 10:41] LABS: INR-International Normal Ratio 2.2; Prothrombin Time 24.8 sec (12.0-14.7)
[2021-12-23 10:54] LABS: ALT (SGPT) 8 U/L (8-55); AST (SGOT) 12 U/L (5-34); Albumin 3.8 g/dL (3.4-4.8); Alkaline Phosphatase 84 U/L (40-110); Anion Gap 14 mmol/L (10-20); BUN (Urea Nitrogen) 19 mg/dL (8.4-25.7); Bilirubin, Total 0.7 mg/dL (0.2-1.2); Calc. Creatinine Clearance 0 mL/min (70-130); Calcium 9.5 mg/dL (7.8-10.44); Carbon Dioxide 26 mmol/L (23-31); Chloride 104 mmol/L (98-107); Estimated GFR 69; Globulin 3.3 g/dL (2.4-3.5); Glucose 95 mg/dL (83-110); Protein, Total 7.1 g/dL (5.8-8.1); Sodium 140 mmol/L (136-145); Uric Acid 4.9 mg/dL (3.5-7.2)
== END 2021-12-23 10:04 | disposition home or self-care (01) ==
LOC: MADLAB 10:03
PROVIDERS: ATTEND Family Medicine
DX: Z51.81 Encounter for therapeutic drug level monitoring (principal); I11.0 Hypertensive heart disease with heart failure; I50.9 Heart failure, unspecified; I48.20 Chronic atrial fibrillation, unspecified; E03.9 Hypothyroidism, unspecified; D50.9 Iron deficiency anemia, unspecified; M10.9 Gout, unspecified; Z79.01 Long term (current) use of anticoagulants
CPT/HCPCS: 36415; 80053; 84443; 84550; 85025; 85610

== ENCOUNTER 2022-02-22 10:06 | Outpatient (CLI) | payer OTHER, MEDICARE ==
[2022-02-22 10:18] LABS: INR-International Normal Ratio 1.9; Prothrombin Time 21.8 sec (12.0-14.7)
== END 2022-02-22 10:07 | disposition home or self-care (01) ==
LOC: MADLABBHPM 10:06
PROVIDERS: ATTEND Family Medicine
DX: Z51.81 Encounter for therapeutic drug level monitoring (principal); Z79.01 Long term (current) use of anticoagulants
CPT/HCPCS: 85610

== ENCOUNTER 2022-04-21 10:48 | Outpatient (CLI) | payer OTHER, MEDICAID ==
[2022-04-21 11:09] LABS: INR-International Normal Ratio 1.8; Prothrombin Time 21.5 sec (12.0-14.7)
== END 2022-04-21 10:49 | disposition home or self-care (01) ==
LOC: MADLAB 10:48
PROVIDERS: ATTEND Family Medicine
DX: Z51.81 Encounter for therapeutic drug level monitoring (principal); I48.20 Chronic atrial fibrillation, unspecified; Z79.01 Long term (current) use of anticoagulants
CPT/HCPCS: 36415; 85610

== ENCOUNTER 2022-06-07 11:39 | Emergency (ER) | payer OTHER, MEDICAID | END 2022-06-07 12:30 | disposition home or self-care (01) | LOC: MADERS 11:39 | DX: M25.562 Pain in left knee (principal); E03.9 Hypothyroidism, unspecified; E78.00 Pure hypercholesterolemia, unspecified; E66.9 Obesity, unspecified; I10 Essential (primary) hypertension; Z79.01 Long term (current) use of anticoagulants; Z79.899 Other long term (current) drug therapy | CPT/HCPCS: 99283 ==

== ENCOUNTER 2022-06-13 14:53 | Outpatient (CLI) | payer OTHER, MEDICAID ==
[2022-06-13 15:26] LABS: #Basophils 0.1 thou/uL (0.0-0.2); #Eosinphils 0.2 thou/uL (0.0-0.7); #Lymphocytes 1.5 thou/uL (1.20-3.40); #Monocytes 0.6 thou/uL (0.11-0.59); #Neutrophils 3.4 thou/uL (1.40-6.50); %Basophils 1.6 % (0.0-1.0); %Eosinophils 2.8 % (0.0-10.0); %Lymphocytes 25.4 % (21.0-51.0); %Monocytes 10.8 % (0.0-10.0); %Neutrophils 59.4 % (42.0-75.0); Hemoglobin 10.6 g/dL (14.0-18.0); Mean Corpuscular HGB CONC 31.7 g/dL (32.0-36.0); Mean Corpuscular Hemoglobin 29.6 pg (27.0-31.0); Mean Corpuscular Volume 93.6 fl (78.0-98.0); Mean Platelet Volume 7.3 fL (7.4-10.4); Platelet Count 268 10x3/uL (130-400); Red Blood Cell (RBC) Count 3.59 mill/uL (4.70-6.10); White Blood Cell (WBC) Count 5.7 10x3/uL (4.8-10.8)
[2022-06-13 16:02] LABS: ALT (SGPT) 16 U/L (8-55); AST (SGOT) 18 U/L (5-34); Albumin 3.8 g/dL (3.4-4.8); Alkaline Phosphatase 67 U/L (40-110); Anion Gap 12 mmol/L (10-20); BUN (Urea Nitrogen) 15 mg/dL (8.4-25.7); Bilirubin, Total 0.3 mg/dL (0.2-1.2); Calc. Creatinine Clearance 0 mL/min (70-130); Carbon Dioxide 29 mmol/L (23-31); Chloride 104 mmol/L (98-107); Estimated GFR 67; Globulin 2.7 g/dL (2.4-3.5); Glucose 89 mg/dL (83-110); Potassium 4.3 mmol/L (3.5-5.1); Protein, Total 6.5 g/dL (5.8-8.1); Sodium 141 mmol/L (136-145)
[2022-06-15 11:37] LABS: % Free PSA 43.3 % (.); Total PSA 0.3 ng/mL (0.0-4.0)
== END 2022-06-13 14:54 | disposition home or self-care (01) ==
LOC: MADLAB 14:53
PROVIDERS: ATTEND Internal Medicine
DX: Z12.5 Encounter for screening for malignant neoplasm of prostate (principal); D50.9 Iron deficiency anemia, unspecified; I10 Essential (primary) hypertension
CPT/HCPCS: 36415; 80053; 84153; 84154; 85025

== ENCOUNTER 2022-12-25 11:03 | Outpatient (CLI) | payer OTHER ==
[2022-12-25 11:37] LABS: INR-International Normal Ratio 1.7; Prothrombin Time 20.2 sec (12.0-14.7)
== END 2022-12-25 11:04 | disposition home or self-care (01) ==
LOC: MADLAB 11:03
PROVIDERS: ATTEND Family Medicine
DX: Z51.81 Encounter for therapeutic drug level monitoring (principal); Z79.01 Long term (current) use of anticoagulants
CPT/HCPCS: 36415; 85610

== ENCOUNTER 2023-05-31 14:26 | Outpatient (CLI) | payer OTHER ==
[2023-05-31 14:46] LABS: INR-International Normal Ratio 2.2; Prothrombin Time 25.5 sec (12.0-14.7)
== END 2023-05-31 14:27 | disposition home or self-care (01) ==
LOC: MADLABBHPM 14:26
PROVIDERS: ATTEND Family Medicine
DX: Z51.81 Encounter for therapeutic drug level monitoring (principal); E03.9 Hypothyroidism, unspecified; Z79.01 Long term (current) use of anticoagulants
CPT/HCPCS: 84443; 85610

== ENCOUNTER 2024-01-01 11:44 | Emergency (ER) | payer MEDICAID, MEDICARE, OTHER ==
[2024-01-01] MEDS ORDERED: Ipratropium/Albuterol 3 ML NEB ONE (11:57)
== END 2024-01-01 12:20 | disposition home or self-care (01) ==
LOC: MADERS 11:44
DX: Z76.0 Encounter for issue of repeat prescription (principal); I10 Essential (primary) hypertension
CPT/HCPCS: 99281; J7620